=== PATIENT | female | born 1955 | race Caucasian/White ===

== ENCOUNTER 2018-10-29 10:57 | Day surgery (SDC) | payer MEDICAID ==
[2018-10-29] MEDS ORDERED: PROPOFOL INJ 200 MG/20 ML VIAL IV ONE (12:22)
[2018-10-29] MEDS ORDERED: OXYCODONE-ACETAMINOPHEN 5-325 MG TABLET PO PRN ×2 (12:48)
[2018-10-29] MEDS ORDERED: DIPHENHYDRAMINE HCL 50 MG/ML VIAL IV PRN (12:48)
[2018-10-29] MEDS ORDERED: PROMETHAZINE HCL INJ 25 MG/1 ML VIAL IV PRN ×2 (12:48)
[2018-10-29] MEDS ORDERED: MORPHINE SULFATE 10 MG/ML INJ IV PRN (12:48)
[2018-10-29] MEDS ORDERED: FENTANYL CITRATE INJ/PF 100 MCG/2 ML AMPUL IV PRN ×3 (12:48)
[2018-10-29] MEDS ORDERED: MEPERIDINE HCL/PF INJ 25 MG/1 ML DISP.SYRIN IV PRN (12:48)
--- NOTE | 2018-10-29 13:51 | Operative Report ---
Operative Report DATE OF SURGERY: 10/29/18 Operative Report: The risks, benefits and alternatives of the procedure including the risk of bleeding, perforation requiring surgery are explained to the patient in detail and informed consent is obtained. The patient is brought back to the operating room and placed in a left, lateral decubital position. Timeout was called. Propofol medication is administered. A rectal examination is done which did not reveal any masses, tears or fissures. An Olympus videoscope was introduced into the patient's rectum. The scope was then carefully advanced all the way to the cecum. The cecum was identified by the usual anatomical landmarks including the ileocecal valve as well as the appendiceal office. Photodocumentation is obtained. The scope was then sequentially pulled back via the rest segments of the colon including the ascending colon, hepatic flexure, transverse colon, splenic flexure, descending colon and finally into the rectosigmoid portions of the colon. Retroflexion maneuver was performed. PREOPERATIVE DIAGNOSIS: Change in bowel habits POSTOPERATIVE DIAGNOSIS: Sigmoid polyp that was ablated in situ. Rectal polyp removed via snare polypectomy and retrieved. There is severe diverticulosis throughout the colon but no evidence of diverticulitis. Internal hemorrhoids OPERATION: Colonoscopy with snare polypectomy. Colonoscopy with biopsy SURGEON: SHWETHA WILDER ANESTHESIA: LMAC TISSUE REMOVED OR ALTERED: As noted above. COMPLICATIONS: None. ESTIMATED BLOOD LOSS: None. INTRAOPERATIVE FINDINGS: As noted above. PROCEDURE: Patient tolerated the procedure well. No immediate postprocedure complications are noted. Patient discharged in good condition. Discharge date 10/29/2018. Discharge diet: Regular. Discharge activity: Regular. 2-3-week follow-up to discuss findings. Patient is instructed call the office or proceed to the emergency room should there be any further problems or questions. 3-5-year surveillance colonoscopy.
[2018-10-29 14:45] VITALS: BP 142/78
== END 2018-10-29 14:35 | disposition home or self-care (01) ==
LOC: OROUT 10:57
PROVIDERS: ATTEND Internal Medicine Gastroenterology
DX: D12.7 Benign neoplasm of rectosigmoid junction (principal); K64.8 Other hemorrhoids; K57.30 Diverticulosis of large intestine without perforation or abscess without bleeding; K92.1 Melena; J44.9 Chronic obstructive pulmonary disease, unspecified; I25.2 Old myocardial infarction; F17.210 Nicotine dependence, cigarettes, uncomplicated; I11.0 Hypertensive heart disease with heart failure; I50.9 Heart failure, unspecified; Z79.51 Long term (current) use of inhaled steroids
CPT/HCPCS: 45385; 88305 ×2; J2704; 811

== ENCOUNTER → 2018-12-06 | Outpatient (CLI) | payer MEDICAID ==
--- NOTE | 2018-12-06 12:11 | RADIOLOGY REPORT (SQ) ---
EXAM DESCRIPTION: L SPINE WHOLE COMPLETED DATE/TIME: 12/06/2018 11:47 am REASON FOR STUDY: ACUTE BILATERAL LOW BACK PAIN WITHOUT SCIATICA M54.5 LOW BACK PAIN COMPARISON: None. NUMBER OF VIEWS: Five views including obliques. TECHNIQUE: AP, lateral, oblique, and sacral radiographic images acquired of the lumbar spine. LIMITATIONS: None. FINDINGS: MINERALIZATION: Normal. SEGMENTATION: Normal. No transitional anatomy. ALIGNMENT: Normal. VERTEBRAE: Maintained height. No fracture or worrisome bone lesion. DISCS: Disc space loss of height at L1-2, L4-5 and L5-S1. POSTERIOR ELEMENTS: Pedicles and facets are intact. No pars defect or posterior arch defects. Bulky bilateral facet arthropathy at L4-5 and L5-S1 HARDWARE: None in the spine. PARASPINAL SOFT TISSUES: Normal. PELVIS: Not in the field of view. SI joints intact OTHER: No other significant finding. IMPRESSION: Degenerative disc changes with facet arthropathy lower lumbar spine TECHNICAL DOCUMENTATION: JOB ID: [id number] [employer]- All Rights Reserved Reading location - IP/workstation name: [email or web address]
== END ==
LOC: RAD 10:56
PROVIDERS: ATTEND Physician Assistant
DX: M54.5 Low back pain (principal)
CPT/HCPCS: 72110

== ENCOUNTER → 2019-07-30 | Outpatient (CLI) | payer MEDICAID ==
--- NOTE | 2019-07-30 14:24 | RADIOLOGY REPORT (SQ) ---
EXAM DESCRIPTION: CT ABD/PELVIS WITH IV ONLY COMPLETED DATE/TIME: 07/30/2019 1:57 pm REASON FOR STUDY: VENTRAL HERNIA W/O OBSTRUCTION OR GANGRENE (K43.9) K43.9 VENTRAL HERNIA WITHOUT O BSTRUCTION OR GANGRENE COMPARISON: Right gluteal region ultrasound TECHNIQUE: CT scan of the abdomen and pelvis performed using helical scanning technique with dynamic intravenous contrast injection. No oral contrast. Images reviewed with lung, soft tissue, and bone windows. Reconstructed coronal and sagittal MPR images reviewed. Delayed images for evaluation of the urinary system also acquired. All images stored on PACS. All CT scanners at this facility use dose modulation, iterative reconstruction, and/or weight based d osing when appropriate to reduce radiation dose to as low as reasonably achievable (ALARA). [facility]: Dose Right [facility]: CareDose [facility]: Dose Right [facility]: Teradose 4D [facility]: Worldscape CONTRAST TYPE AND DOSE: contrast/concentration: Isovue 350.00 mg/ml; Total Contrast Delivered: 100.0 ml; Total Saline Delivered: 72.0 ml RENAL FUNCTION: Creatinine 0.8 RADIATION DOSE: CT Rad equipment meets quality standard of care and radiation dose reduction techniq ues were employed. CTDIvol: 26.6 - 31.5 mGy. DLP: 2920 mGy-cm.. LIMITATIONS: None. FINDINGS: LOWER CHEST: No significant findings. No nodules or infiltrates. LIVER: Normal size. No masses. No dilated ducts. SPLEEN: Normal size. No focal lesions. PANCREAS: No masses. No significant calcifications. No adjacent inflammation or peripancreatic fluid collections. Pancreatic duct not dilated. GALLBLADDER: No identified stones by CT criteria. No inflammatory changes to suggest cholecystitis. ADRENAL GLANDS: No significant masses or asymmetry. RIGHT KIDNEY AND URETER: No solid masses. Multiple less than 2 cm right renal cortical cysts. No si gnificant calcifications. No hydronephrosis or hydroureter. LEFT KIDNEY AND URETER: No solid masses. Multiple less than 2 cm left renal cortical cysts. No sign ificant calcifications. No hydronephrosis or hydroureter. AORTA AND VESSELS: No aneurysm. No dissection. Renal arteries, SMA, celiac without stenosis. RETROPERITONEUM: No retroperitoneal adenopathy, hemorrhage or masses. BOWEL AND PERITONEAL CAVITY: Diffuse colonic diverticulosis without CT signs of acute diverticulitis. No CT evidence of free intraperitoneal air or fluid or CT signs of bowel obstruction or urinary out flow obstruction APPENDIX: Normal. PELVIS: No mass. No free fluid. Normal bladder. Normal size female pelvic organs ABDOMINAL WALL: No masses. No hernias. BONES: Mild degenerative disc changes lower lumbar spine. Osteoarthritis bilateral hips. OTHER: Over the right gluteal/ upper thigh region, several subcentimeter and cm cystic areas are pres ent with bandlike scarring likely fat necrosis. This is best shown on axial images 88-91. IMPRESSION: Colonic diverticulosis without CT signs of acute diverticulitis Fat necrosis right gluteal region TECHNICAL DOCUMENTATION: JOB ID: [id number] Quality ID # [id number]: Final reports with documentation of one or more dose reduction techniques (e.g., Au tomated exposure control, adjustment of the mA and/or kV according to patient size, use of iterative reconstruction technique) 2010 [employer]- All Rights Reserved Reading location - IP/workstation name: [email or web address]
--- NOTE | 2019-07-30 15:42 | RADIOLOGY REPORT (SQ) ---
EXAM DESCRIPTION: U/S EXTREMITY NONVASCULAR LTD COMPLETED DATE/TIME: 07/30/2019 2:31 pm REASON FOR STUDY: SWELLING, MASS AND LUMP, RIGHT LOWER LIMB (R22.41) K43.9 VENTRAL HERNIA WITHOUT O BSTRUCTION OR GANGRENE COMPARISON: None. TECHNIQUE: Dynamic and static grayscale images acquired of the localized site of clinical concern an d recorded on PACS. Additional selected color Doppler and spectral images recorded. SITE OF CONCERN: Posterior right thigh LIMITATIONS: None. FINDINGS: Sonographic imaging shows 4 areas of decreased attenuation. The largest measures 20 x 21 x 15 mm. The smallest measures 13 x 10 x 11 mm. IMPRESSION: Possible areas of fat necrosis in the posterior right thigh. TECHNICAL DOCUMENTATION: JOB ID: [id number] [employer]- All Rights Reserved Reading location - IP/workstation name: [email or web address]
== END ==
LOC: RAD 13:25
PROVIDERS: ATTEND Physician Assistant
DX: K43.9 Ventral hernia without obstruction or gangrene (principal); R22.41 Localized swelling, mass and lump, right lower limb; K57.30 Diverticulosis of large intestine without perforation or abscess without bleeding
CPT/HCPCS: 74177; 76882; 82565

== ENCOUNTER 2020-07-26 17:45 | Inpatient (IN) | payer MEDICAID ==
[~2020-07-26 17:45] MED LIST: ETOMIDATE INJ/PF 20 MG/10 ML SDV IV ONE; SUCCINYLCHOLINE CHLORIDE INJ 200 MG/10 ML VIAL ONE
[2020-07-26] MEDS: RINGERS SOLUTION,LACTATED 1,000 ML IV PRN ×3 (18:00→23:30)
[2020-07-26] MEDS ORDERED: NALOXONE HCL INJ/PF 0.4 MG/1 ML SDV IV ONE (18:05)
[2020-07-26] MEDS ORDERED: VANCOMYCIN HCL INJ 1000 MG VIAL IV ONE (18:09)
[2020-07-26] MEDS ORDERED: IMIPENEM/CILASTATIN SODIUM INJ 500 MG VIAL IV ONE (18:09)
--- NOTE | 2020-07-26 18:21 | ER Document Report ---
ED General - General Chief Complaint: Altered Mental Status Stated Complaint: ALTERED MENTAL STATUS Primary Care Provider: ENRIQUE JUAREZ FNP-C [Primary Care Provider] - Follow up as needed TRAVEL OUTSIDE OF THE [place] IN LAST 30 DAYS: No - HPI Notes: Chief complaint: Altered mental status History of present illness: 65-year-old female with history of COPD and "heart problems" reported by family members to have had difficulty breathing for several days. She apparently lives alone. 1 of her relatives had been trying for over 10 hours to reach her on the telephone with a unsuccessfully and when he went to the house they found her in the bathroom on the floor semi- responsive. They called EMS. According to EMS crew the patient was lying on t he floor and was initially alert and oriented but had blue discoloration of lower extremities. He obtained a O2 saturation in the upper 60s. Placed her on a nonrebreather and documented a normal fingerstick blood sugar. When they attempted to get her up off the floor she became unresponsive blood pressure was unobtainable. They loaded her onto a nature of 100% nonrebreather they had a 90% O2 sat. Patient was groaning and moving all 4 extremities symmetrically in response to painful stimuli. She was not talking during transport. No additional medical history is obtainable at this time. - Related Data Allergies/Adverse Reactions: No Known Allergies Allergy (Verified 10/29/18 11:09) Past Medical History - General Information source: Emergency Med Personnel Cannot obtain history due to: Unstable vital signs, Altered mental status - Social History Smoking Status: Current Every Day Smoker Family History: Reviewed & Not Pertinent - Past Medical History Cardiac Medical History: Reports: Hx Heart Attack - 2018, Hx Hypertension - MEDS PRN Denies: Hx Coronary Artery Disease Pulmonary Medical History: Reports: Hx Bronchitis, Hx COPD Denies: Hx Asthma, Hx Pneumonia Neurological Medical History: Denies: Hx Cerebrovascular Accident, Hx Seizures Musculoskeletal Medical History: Reports Hx Arthritis - SPINE - Immunizations Hx Diphtheria, Pertussis, Tetanus Vaccination: No Review of Systems - Review of Systems -: Yes ROS unobtainable due to patient's medical condition Physical Exam - Vital signs Vitals: Resp Pulse Ox 13 83 L 07/26/20 17:50 07/26/20 17:50 - Notes Notes: GENERAL: Morbidly obese female of approximately reported age. SKIN: Cool, pale and moist. Extensive intertrigo in the groin area and beneath both breasts. Acral cyanosis lower extremities. HEAD: Normocephalic atraumatic. EYES: Prominent bilateral arcus senilis. Pupils are small equal and sluggishly reactive to light. EOMI. Conjunctivae and sclerae clear. EARS: CANALS AND TMS CLEAR. NOSE: CLEAR. MOUTH: Moist mucosa. Poor dentition. No stridor or edema. No drooling. Gag reflex intact. NECK: Supple. No masses or thyromegaly. No adenopathy. No JVD. BACK: Symmetrical. CHEST: Respirations mildly labored. Poor air movement with scattered rhonchi bilaterally. HEART: Regular rhythm. No murmur gallop or rub. ABDOMEN: Morbidly obese with large ventral hernia present soft nontender without masses, organomegaly or rebound. Bowel sounds normally active. No bruits. GENITALIA: Normal female with extensive intertrigo. EXTREMITIES: Lymphedema of lower extremities. No calf tenderness. Cap refill less than 1.5 seconds. Dorsalis pedis and posterior tibial pulses 3+ and symmetrical. NEUROLOGICAL: GCS 12. Opens eyes to verbal stimuli. Repeats her name only. Follows commands to squeeze fingers. Moves extremities symmetrically in res ponse to painful stimuli. Normal tone. Course - Vital Signs Vital signs: Temp Pulse Resp BP Pulse Ox 97.2 F 17 95/19 L 100 07/26/20 19:08 07/26/20 19:08 07/26/20 19:08 07/26/20 19:07 - Laboratory Result Diagrams: 07/26/20 18:10 07/26/20 18:10 Laboratory results interpreted by me: 07/26/20 07/26/20 07/26/20 18:10 18:10 18:10 WBC 21.8 H RBC 5.92 H Hgb 17.0 H Hct 52.6 H RDW 16.0 H Seg Neuts % (Manual) 95 H Band Neutrophils % 1 L Lymphocytes % (Manual) 1 L Abs Neuts (Manual) 20.9 H Abs Lymphs (Manual) 0.2 L PT 15.5 H Carbonic Acid ABG pH ABG pCO2 ABG HCO3 ABG Total CO2 ABG O2 Saturation VBG pH VBG pCO2 Chloride 95 L Carbon Dioxide 31 H BUN 92 H Creatinine 1.73 H Est GFR ( Amer) 36 L Est GFR (MDRD) Non-Af 30 L Lactic Acid Direct Bilirubin 0.7 H AST 446 H ALT 142 H Creatine Kinase NT-Pro-B Natriuret Pep Urine Protein Urine Blood Urine Urobilinogen Leukocyte Esterase Rfl 07/26/20 07/26/20 07/26/20 18:10 18:10 18:10 WBC RBC Hgb Hct RDW Seg Neuts % (Manual) Band Neutrophils % Lymphocytes % (Manual) Abs Neuts (Manual) Abs Lymphs (Manual) PT Carbonic Acid ABG pH ABG pCO2 ABG HCO3 ABG Total CO2 ABG O2 Saturation VBG pH 7.12 L* VBG pCO2 93.7 H* Chloride Carbon Dioxide BUN Creatinine Est GFR ( Amer) Est GFR (MDRD) Non-Af Lactic Acid 2.6 H Direct Bilirubin AST ALT Creatine Kinase 90935 H NT-Pro-B Natriuret Pep Urine Protein Urine Blood Urine Urobilinogen Leukocyte Esterase Rfl 07/26/20 07/26/20 07/26/20 18:10 18:10 20:14 WBC RBC Hgb Hct RDW Seg Neuts % (Manual) Band Neutrophils % Lymphocytes % (Manual) Abs Neuts (Manual) Abs Lymphs (Manual) PT Carbonic Acid 2.79 H ABG pH 7.14 L* ABG pCO2 92.6 H* ABG HCO3 31.0 H ABG Total CO2 33.9 H ABG O2 Saturation 91.4 L VBG pH VBG pCO2 Chloride Carbon Dioxide BUN Creatinine Est GFR ( Amer) Est GFR (MDRD) Non-Af Lactic Acid Direct Bilirubin AST ALT Creatine Kinase NT-Pro-B Natriuret Pep 7910 H Urine Protein 100 H Urine Blood LARGE H Urine Urobilinogen 4.0 H Leukocyte Esterase Rfl MODERATE H - Diagnostic Test Radiology reviewed: Reports reviewed - Per radiologist: Multifocal pneumonia versus CHF. - EKG Interpretation by Me Additional EKG results interpreted by me: 07/26/20 19:39 Twelve-lead EKG reviewed by me contemporaneously: 1821 Indication for study: Altered mental status Rhythm: Normal sinus Rate: 74 Intervals: Normal QRS axis: -[address]/T wave changes: None Comparison with prior tracing: None available Interpretation: LVH and left anterior fascicular block Procedures - Intubation Orotracheal Airway evaluation: Normal anatomy, Copious secretions Mallampati Classification: Class 2 Medications: Etomidate, Succinylcholine Intubation method: Orotracheal Blade size: 4 Equipment used: Glidescope ETT size: 8.0 ETT secured at: Teeth ETT secured at (cm): 22 End tidal CO2 confirmed: Yes Intubation Complications: No complications Critical Care Note - Critical Care Note Total time excluding time spent on procedures (mins): 120 - AMS, pneumonia, sepsis, rhabdomyolysis, respiratory failure wiring intubation Discharge - Discharge Clinical Impression: Suspected COVID-19 virus infection, COPD, Acute non-STEMI Acute and chronic respiratory failure Qualifiers: Respiratory failure complication: hypoxia and hypercapnia Qualified Code(s): J96.21 - Acute and chronic respiratory failure with hypoxia Pneumonia Qualifiers: Pneumonia type: due to unspecified organism Laterality: bilateral Lung location: unspecified part of lung Qualified Code(s): J18.9 - Pneumonia, unspecified organism Rhabdomyolysis Qualifiers: Rhabdomyolysis type: non-traumatic Qualified Code(s): M62.82 - Rhabdomyolysis Condition: Critical Disposition: ADMITTED INPATIENT Admitting Provider: Eligio (Industrial Engineering Professor) Unit Admitted: ICU Referrals: ENRIQUE JUAREZ FNP-C [Primary Care Provider] - Follow up as needed
[2020-07-26 18:31] LABS: HEMATOCRIT 52.6 % (36.0-47.0); MEAN CORPUSCULAR HEMOGLOBIN 28.7 pg (27.0-33.4); MEAN CORPUSCULAR HGB CONC 32.3 g/dL (32.0-36.0); MEAN CORPUSCULAR VOLUME 89 fl (80-97); PLATELET COUNT 239 10^3/uL (150-450); RED BLOOD COUNT 5.92 10^6/uL (3.72-5.28); WHITE BLOOD COUNT 21.8 10^3/uL (4.0-10.5)
[2020-07-26 18:34] LABS: INTERNATIONAL RATION (INR) 1.21; PROTHROMBIN TIME 15.5 SEC (11.4-15.4)
[2020-07-26 18:41] LABS: AMORPHOUS SEDIMENT,URINE TRACE /HPF; APPEARANCE,URINE CLOUDY; BILIRUBIN,URINE NEGATIVE (NEGATIVE); COLOR,URINE AMBER; GLUCOSE, URINE NEGATIVE (NEGATIVE); KETONES,URINE NEGATIVE (NEGATIVE); PROTEIN,URINE 100 mg/dL (NEGATIVE)
[2020-07-26 18:42] LABS: VENOUS BLOOD HCO3 30.1 mmol/L (20-32)
[2020-07-26 18:44] LABS: ABSOLUTE LYMPHOCYTES# (MANUAL) 0.2 10^3/uL (0.5-4.7); ABSOLUTE MONOCYTES # (MANUAL) 0.7 10^3/uL (0.1-1.4); ANISOCYTOSIS 1+; BAND NEUTROPHILS % (MANUAL) 1 % (3-5); BASOPHILS % (MANUAL) 0 % (0-2); EOSINOPHILS % (MANUAL) 0 % (0-6); LYMPHOCYTES % (MANUAL) 1 % (13-45); MONOCYTES % (MANUAL) 3 % (3-13); SEGMENTED NEUTROPHILS % (MAN) 95 % (42-78); TOTAL CELLS COUNTED 100
[2020-07-26 18:45] LABS: POIKILOCYTOSIS 1+; POLYCHROMASIA 1+; STOMATOCYTES 1+; VENOUS BLOOD PCO2 93.7 mmHg (35-63); VENOUS BLOOD PH 7.12 (7.30-7.42)
[2020-07-26 18:46] LABS: PLATELET COMMENT ADEQUATE
[2020-07-26 18:48] LABS: ALKALINE PHOSPHATASE 74 U/L (38-126); ANION GAP 12 (5-19); ASPARTATE AMINO TRANSFERASE 446 U/L (14-36); BILIRUBIN,DIRECT 0.7 mg/dL (0.0-0.4); BILIRUBIN,TOTAL 1.3 mg/dL (0.2-1.3); BLOOD UREA NITROGEN 92 mg/dL (7-20); CARBON DIOXIDE 31 mmol/L (22-30); CHLORIDE 95 mmol/L (98-107); GLUCOSE 95 mg/dL (75-110); POTASSIUM 4.4 mmol/L (3.6-5.0); TOTAL PROTEIN 7.1 g/dL (6.3-8.2)
--- NOTE | 2020-07-26 19:14 | RADIOLOGY REPORT (SQ) ---
EXAM DESCRIPTION: CHEST SINGLE VIEW IMAGES COMPLETED DATE/TIME: 07/26/2020 7:01 pm REASON FOR STUDY: hypoxia COMPARISON: None. EXAM PARAMETERS: NUMBER OF VIEWS: One view. TECHNIQUE: Single frontal radiographic view of the chest acquired. RADIATION DOSE: NA LIMITATIONS: None. FINDINGS: LUNGS AND PLEURA: Diffusely increased airspace opacities without focal consolidation. No pleural effusion. No pneumothorax. MEDIASTINUM AND HILAR STRUCTURES: No masses. Contour normal. HEART AND VASCULAR STRUCTURES: Cardiomegaly without central vascular congestion. BONES: No acute findings. HARDWARE: None in the chest. OTHER: No other significant finding. IMPRESSION: Findings may represent a developing multifocal pneumonia. Early CHF exacerbation is not excluded. TECHNICAL DOCUMENTATION: JOB ID: [id number] 2010 [employer]- All Rights Reserved Reading location - IP/workstation name: [email or web address]
[2020-07-26] MEDS ORDERED: AZITHROMYCIN INJ 500 MG VIAL IV ONE (19:41)
[2020-07-26 20:41] LABS: ARTERIAL BLOOD BASE EXCESS -1.3 mmol/L; ARTERIAL BLOOD H2CO3 2.79 mmol/L (1.05-1.35); ARTERIAL BLOOD O2 SATURATION 91.4 % (94-98); ARTERIAL BLOOD PO2 80.6 mmHg (80-100); ARTERIAL BLOOD TOTAL CO2 33.9 mmol/L (21-25)
[2020-07-26 20:51] LABS: ARTERIAL BLOOD PCO2 92.6 mmHg (35-45); ARTERIAL BLOOD PH 7.14 (7.35-7.45)
[2020-07-26 20:52] LABS: ARTERIAL BLOOD FIO2 60%
[2020-07-26] MEDS ORDERED: ETOMIDATE INJ/PF 20 MG/10 ML SDV IV ONE (21:18)
[2020-07-26] MEDS ORDERED: SUCCINYLCHOLINE CHLORIDE INJ 200 MG/10 ML VIAL IV ONE (21:19)
[2020-07-26] MEDS ORDERED: DEXTROSE 5%-WATER 250 ML with NOREPINEPHRINE BITARTRATE 4 MG IV PRN ×2 (21:23)
[2020-07-26] MEDS ORDERED: ACETAMINOPHEN 325 MG TABLET PO PRN (21:23)
[2020-07-26] MEDS ORDERED: RINGERS SOLUTION,LACTATED 1,000 ML IV PRN (21:23)
[2020-07-26] MEDS ORDERED: ONDANSETRON HCL INJ/PF 4 MG/2 ML SDV IV PRN (21:23)
[2020-07-26] MEDS ORDERED: PHARMACY COMMUNICATION ORDER MC NR (21:30)
[2020-07-26] MEDS ORDERED: ACETAMINOPHEN 325 MG TABLET NG PRN (22:00)
[2020-07-26] MEDS ORDERED: NOREPINEPHRINE BITARTRATE INJ/PF 4 MG/4 ML SDV IV ONE (22:15)
--- NOTE | 2020-07-26 22:21 | RADIOLOGY REPORT (SQ) ---
EXAM DESCRIPTION: X-RAY CHEST- TWO VIEWS CLINICAL HISTORY: Evaluate tube placement COMPARISON: July 26, 2020 at 6:57 PM TECHNIQUE: 2 frontal views of the chest. Study submitted at 9:36 PM FINDINGS: There are overlying EKG leads. Presumed endotracheal tube is noted, terminating approximately 2.1 cm above the zach. Enteric tube is visualized with distal tip terminating in the expected location of the stomach. There is redemonstration of bibasilar airspace opacities. The pulmonary vascularity and the cardiomediastinal silhouette are grossly stable in appearance with redemonstration of mild enlargement of the cardiac silhouette. Osseous structures are unchanged. IMPRESSION: 1. Positioning of support lines and tubes as detailed above. A presumed endotracheal tube is noted. Consider retraction for more optimal placement. 2. Redemonstration of bibasilar airspace opacities. Findings are nonspecific and differential diagnosis includes infectious and inflammatory causes.
[2020-07-26 22:31] LABS: ALBUMIN 3.3 g/dL (3.5-5.0); ALKALINE PHOSPHATASE 58 U/L (38-126); ANION GAP 11 (5-19); ASPARTATE AMINO TRANSFERASE 551 U/L (14-36); BILIRUBIN,DIRECT 0.5 mg/dL (0.0-0.4); BLOOD UREA NITROGEN 91 mg/dL (7-20); CALCIUM 8.3 mg/dL (8.4-10.2); CARBON DIOXIDE 30 mmol/L (22-30); CHLORIDE 96 mmol/L (98-107); GLUCOSE 116 mg/dL (75-110); POTASSIUM 4.6 mmol/L (3.6-5.0)
[2020-07-26] MEDS: IPRATROPIUM/ALBUTEROL 0.5-2.5 MG/3 ML AMPUL NEB SCH (22:31)
[2020-07-26] MEDS: PROPOFOL 1,000 MG/100 ML INFUS..BTL IV PRN (22:46)
[2020-07-26 22:53] LABS: PHOSPHORUS 7.7 mg/dL (2.5-4.5)
[2020-07-26 23:10] LABS: TROPONIN I 0.411 ng/mL
[2020-07-26] MEDS: PANTOPRAZOLE SODIUM 40 MG VIAL IV SCH (23:56)
[2020-07-26 23:57] LABS: ARTERIAL BLOOD BASE EXCESS -0.4 mmol/L; ARTERIAL BLOOD FIO2 50%; ARTERIAL BLOOD H2CO3 2.42 mmol/L (1.05-1.35); ARTERIAL BLOOD HCO3 30.6 mmol/L (20-24); ARTERIAL BLOOD PO2 58.7 mmHg (80-100); ARTERIAL BLOOD TOTAL CO2 33.1 mmol/L (21-25)
[2020-07-26 23:59] LABS: ARTERIAL BLOOD PCO2 80.5 mmHg (35-45)
[2020-07-27 00:14] LABS: HEMATOCRIT 47.5 % (36.0-47.0); HEMOGLOBIN 15.2 g/dL (12.0-15.5); MEAN CORPUSCULAR HEMOGLOBIN 28.8 pg (27.0-33.4); MEAN CORPUSCULAR VOLUME 90 fl (80-97); PLATELET COUNT 198 10^3/uL (150-450); RED BLOOD COUNT 5.29 10^6/uL (3.72-5.28); RED CELL DISTRIBUTION WIDTH 16.3 % (11.5-14.0)
[2020-07-27 00:41] LABS: ABSOLUTE LYMPHOCYTES# (MANUAL) 1.1 10^3/uL (0.5-4.7); BASOPHILS % (MANUAL) 0 % (0-2); EOSINOPHILS % (MANUAL) 0 % (0-6); LYMPHOCYTES % (MANUAL) 5 % (13-45); MONOCYTES % (MANUAL) 9 % (3-13); NUCLEATED RED BLOOD CELLS 1 /100 WBC (0); SEGMENTED NEUTROPHILS % (MAN) 86 % (42-78); TOTAL CELLS COUNTED 100
[2020-07-27 00:42] LABS: ANISOCYTOSIS 1+; PLATELET COMMENT ADEQUATE; TOXIC VACUOLATION PRESENT
[2020-07-27 02:00] LABS: ARTERIAL BLOOD BASE EXCESS -0.3 mmol/L; ARTERIAL BLOOD H2CO3 1.59 mmol/L (1.05-1.35); ARTERIAL BLOOD HCO3 26.7 mmol/L (20-24); ARTERIAL BLOOD O2 SATURATION 97.3 % (94-98); ARTERIAL BLOOD PCO2 52.8 mmHg (35-45); ARTERIAL BLOOD PH 7.32 (7.35-7.45); ARTERIAL BLOOD PO2 103.6 mmHg (80-100); ARTERIAL BLOOD TOTAL CO2 28.3 mmol/L (21-25)
[2020-07-27 02:02] LABS: ARTERIAL BLOOD FIO2 80
[2020-07-27] MEDS: IPRATROPIUM/ALBUTEROL 0.5-2.5 MG/3 ML AMPUL NEB SCH ×4 (02:20→19:33)
--- NOTE | 2020-07-27 03:32 | CRITICAL CARE ADMISSION REPORT ---
HPI Date:: 07/26/20 Time:: 23:00 Reason for ICU Reason:: Acute Hypercarbic respiratory failure Admission Date/Time & PCP: Admission Date/Time: 07/26/20 21:23 Primary Care Provider: CAPRICE GOLDSTEIN HPI: istory of present illness: 65-year-old female with history of COPD and "heart problems" reported by family members to have had difficulty breathing for several days. She was found semi responsive on her bath room by one of her relative after multiple failed attempt to reach her through phone. Unknown how long she has been in this state.EMS was activated. According to EMS crew the patient was lying on the floor and was initially alert and oriented but noted blue discoloration of lower extremities. She was hypoxic with o2 saturation < 65% Placed her on a non-rebreather and o2 saturation went up to 90%Patient was groaning and moving all 4 extremities symmetrically in response to painful stimuli. She was placed on BIPAP upon arrival to ED and urgently intubated. - Diagnosis/Plan (1) Sepsis Qualifiers: Sepsis type: sepsis due to unspecified organism Sepsis acute organ dysfunction status: unspecified Qualified Code(s): A41.9 - Sepsis, unspecified organism Is this a current diagnosis for this admission?: Yes Plan: sepsis protocol initiated. BC x 2 , sputum culture obtained . Emperic IV ABT. IVF resuscitation 3 L given. (2) CHF (congestive heart failure), NYHA class II Qualifiers: Congestive heart failure type: unspecified Qualified Code(s): I50.9 - Heart failure, unspecified Is this a current diagnosis for this admission?: Yes (3) Obesity hypoventilation syndrome Is this a current diagnosis for this admission?: Yes (4) COPD (chronic obstructive pulmonary disease) Qualifiers: COPD type: COPD with acute lower respiratory infection Qualified Code(s): J44.0 - Chronic obstructive pulmonary disease with (acute) lower respiratory infection Is this a current diagnosis for this admission?: Yes (5) Acute and chronic respiratory failure Qualifiers: Respiratory failure complication: hypoxia and hypercapnia Qualified Code(s): J96.21 - Acute and chronic respiratory failure with hypoxia; J96.22 - Acute and chronic respiratory failure with hypercapnia Is this a current diagnosis for this admission?: Yes Plan: Patient intubated and sedated. Emperic ABT started. Sputum culture sent. COVID test pending (6) Pneumonia Qualifiers: Pneumonia type: due to unspecified organism Laterality: left Lung location: unspecified part of lung Qualified Code(s): J18.9 - Pneumonia, unspecified organism Is this a current diagnosis for this admission?: Yes Plan: Sputum culture. Emperic IV ABT initiated. (7) Rhabdomyolysis Qualifiers: Rhabdomyolysis type: non-traumatic Qualified Code(s): M62.82 - Rhabdomyolysis Is this a current diagnosis for this admission?: Yes Plan: Fluid resuscitation. Monitor CK, Monitor renal function. (8) Suspected COVID-19 virus infection Is this a current diagnosis for this admission?: Yes Plan: COVID test pending. Isolation Past Medical History Cardiac Medical History: Reports: Myocardial Infarction - 2018, Hypertension - MEDS PRN Denies: Coronary Artery Disease Pulmonary Medical History: Reports: Bronchitis, Chronic Obstructive Pulmonary Disease (COPD) Denies: Asthma, Pneumonia Neurological Medical History: Denies: Seizures Musculoskeltal Medical History: Reports: Arthritis - SPINE Hematology: Denies: Anemia Social/Family History - Social History Lives with: Alone Smoking Status: Current Every Day Smoker - Medication/Allergies Home Medications: Hydrochlorothiazide [Hydrodiuril 25 mg Tablet] 25 mg PO PRN PRN 10/28/18 Multivitamin [Multiple Vitamins] 1 each PO DAILY 10/28/18 Multivitamin with Minerals [Hair, Skin and Nails] 1 each PO DAILY 10/28/18 Allergies/Adverse Reactions: No Known Allergies Allergy (Verified 10/29/18 11:09) Review of Systems ROS unobtainable: Due to endotracheal tube Physical Exam Vital Signs: Temp Pulse Resp BP Pulse Ox 98.6 F 64 20 113/78 97 07/27/20 00:03 07/27/20 00:03 07/27/20 00:03 07/27/20 00:03 07/27/20 00:03 Intake & Output 07/25/20 07/26/20 07/27/20 06:59 06:59 06:59 Intake Total 2262 Output Total 45 Balance 2217 Weight 149.8 kg Weight/Height Weight 149.8 kg Height 5 ft 7 in Laboratory/Radiographs Laboratory Results: 07/26/20 21:31 07/27/20 00:15 07/26/20 07/26/20 07/26/20 18:10 18:10 18:10 WBC 21.8 H RBC 5.92 H Hgb 17.0 H Hct 52.6 H MCV 89 MCH 28.7 MCHC 32.3 RDW 16.0 H Plt Count 239 Seg Neutrophils % Not Reportable Carbonic Acid HCO3/H2CO3 Ratio ABG pH ABG pCO2 ABG pO2 ABG HCO3 ABG O2 Saturation ABG Base Excess VBG pH 7.12 L* VBG pCO2 93.7 H* VBG HCO3 30.1 VBG Base Excess -3.0 FiO2 Sodium 138.4 Potassium 4.4 Chloride 95 L Carbon Dioxide 31 H Anion Gap 12 BUN 92 H Creatinine 1.73 H Est GFR ( Amer) 36 L Est GFR (Non-Af Amer) Glucose 95 Lactic Acid Calcium 9.0 Phosphorus Magnesium Ferritin Total Bilirubin 1.3 AST 446 H Alkaline Phosphatase 74 Total Protein 7.1 Albumin 4.0 Amylase Lipase Urine Color Urine Appearance Urine pH Ur Specific Callahan Urine Protein Urine Glucose (UA) Urine Ketones Urine Blood Urine RBC (Auto) 07/26/20 07/26/20 07/26/20 18:10 18:10 18:10 WBC RBC Hgb Hct MCV MCH MCHC RDW Plt Count Seg Neutrophils % Carbonic Acid HCO3/H2CO3 Ratio ABG pH ABG pCO2 ABG pO2 ABG HCO3 ABG O2 Saturation ABG Base Excess VBG pH VBG pCO2 VBG HCO3 VBG Base Excess FiO2 Sodium Potassium Chloride Carbon Dioxide Anion Gap BUN Creatinine Est GFR ( Amer) Est GFR (Non-Af Amer) Glucose Lactic Acid 2.6 H Calcium Phosphorus Magnesium Ferritin 35.60 Total Bilirubin AST Alkaline Phosphatase Total Protein Albumin Amylase Lipase Urine Color JOVANNY Urine Appearance CLOUDY Urine pH 5.0 Ur Specific Callahan 1.020 Urine Protein 100 H Urine Glucose (UA) NEGATIVE Urine Ketones NEGATIVE Urine Blood LARGE H Urine RBC (Auto) 6 07/26/20 07/26/20 07/26/20 20:14 21:31 21:31 WBC RBC Hgb Hct MCV MCH MCHC RDW Plt Count Seg Neutrophils % Carbonic Acid 2.79 H HCO3/H2CO3 Ratio 11:1 ABG pH 7.14 L* ABG pCO2 92.6 H* ABG pO2 80.6 ABG HCO3 31.0 H ABG O2 Saturation 91.4 L ABG Base Excess -1.3 VBG pH VBG pCO2 VBG HCO3 VBG Base Excess FiO2 60% Sodium 136.9 L Potassium 4.6 Chloride 96 L Carbon Dioxide 30 Anion Gap 11 BUN 91 H Creatinine 1.52 H Est GFR ( Amer) 42 L Est GFR (Non-Af Amer) Glucose 116 H Lactic Acid Calcium 8.3 L Phosphorus 7.7 H Magnesium 2.5 H Ferritin Total Bilirubin 1.0 AST 551 H Alkaline Phosphatase 58 Total Protein 6.0 L Albumin 3.3 L Amylase 46 Lipase 96.5 Urine Color Urine Appearance Urine pH Ur Specific Callahan Urine Protein Urine Glucose (UA) Urine Ketones Urine Blood Urine RBC (Auto) 07/26/20 07/26/20 07/26/20 21:31 21:45 21:48 WBC 22.0 H RBC 5.29 H Hgb 15.2 Hct 47.5 H MCV 90 MCH 28.8 MCHC 32.0 RDW 16.3 H Plt Count 198 Seg Neutrophils % Not Reportable Carbonic Acid 2.42 H HCO3/H2CO3 Ratio 12:1 ABG pH 7.20 L* ABG pCO2 80.5 H* ABG pO2 58.7 L ABG HCO3 30.6 H ABG O2 Saturation 83.0 L ABG Base Excess -0.4 VBG pH VBG pCO2 VBG HCO3 VBG Base Excess FiO2 50% Sodium Potassium Chloride Carbon Dioxide Anion Gap BUN Creatinine Est GFR ( Amer) Est GFR (Non-Af Amer) Glucose Lactic Acid 1.4 Calcium Phosphorus Magnesium Ferritin Total Bilirubin AST Alkaline Phosphatase Total Protein Albumin Amylase Lipase Urine Color Urine Appearance Urine pH Ur Specific Callahan Urine Protein Urine Glucose (UA) Urine Ketones Urine Blood Urine RBC (Auto) 07/27/20 07/27/20 00:15 00:42 WBC RBC Hgb Hct MCV MCH MCHC RDW Plt Count Seg Neutrophils % Carbonic Acid HCO3/H2CO3 Ratio ABG pH ABG pCO2 ABG pO2 ABG HCO3 ABG O2 Saturation ABG Base Excess VBG pH VBG pCO2 VBG HCO3 VBG Base Excess FiO2 Sodium Cancelled Potassium Cancelled Chloride Cancelled Carbon Dioxide Cancelled Anion Gap Cancelled BUN Cancelled Creatinine Cancelled Est GFR ( Amer) Cancelled Est GFR (Non-Af Amer) Cancelled Glucose Cancelled Lactic Acid 2.3 H Calcium Cancelled Phosphorus Magnesium Ferritin Total Bilirubin Cancelled AST Cancelled Alkaline Phosphatase Cancelled Total Protein Cancelled Albumin Cancelled Amylase Lipase Urine Color Urine Appearance Urine pH Ur Specific Callahan Urine Protein Urine Glucose (UA) Urine Ketones Urine Blood Urine RBC (Auto) 07/26/20 07/26/20 07/26/20 18:10 18:10 18:10 Creatine Kinase 80983 H CK-MB (CK-2) Troponin I 0.478 NT-Pro-B Natriuret Pep 7910 H 07/26/20 21:31 Creatine Kinase CK-MB (CK-2) 296.00 H Troponin I 0.411 NT-Pro-B Natriuret Pep 6640 H Impressions: Chest X-Ray 07/26/20 21:17 IMPRESSION: 1. Positioning of support lines and tubes as detailed above. A presumed endotracheal tube is noted. Consider retraction for more optimal placement. 2. Redemonstration of bibasilar airspace opacities. Findings are nonspecific and differential diagnosis includes infectious and inflammatory causes. All labs, radiographs, diagnostic studies and EKGs were personally reviewed: Yes In addition, reports of radiographic and diagnostic studies were read: Yes Critical Time Critical Time (minutes): 60 -: The care of a critically ill patient is dynamic. This note represents a static moment in the admission process. Orders and treatments may be given simultaneously and urgently, and time is not sales representative cash registers of the treatment process. This patient requires Critical Care secondary to life threatening organ or limb dysfunction. Without Critical Care services, the patient is at risk for increased mortality and morbidity.
[2020-07-27] MEDS: RINGERS SOLUTION,LACTATED 1,000 ML IV PRN ×2 (03:35→14:28)
[2020-07-27 03:50] LABS: HEMATOCRIT 49.6 % (36.0-47.0); HEMOGLOBIN 16.1 g/dL (12.0-15.5); MEAN CORPUSCULAR HEMOGLOBIN 28.6 pg (27.0-33.4); MEAN CORPUSCULAR HGB CONC 32.4 g/dL (32.0-36.0); MEAN CORPUSCULAR VOLUME 88 fl (80-97); PLATELET COUNT 175 10^3/uL (150-450); RED BLOOD COUNT 5.62 10^6/uL (3.72-5.28); RED CELL DISTRIBUTION WIDTH 16.2 % (11.5-14.0); WHITE BLOOD COUNT 23.4 10^3/uL (4.0-10.5)
[2020-07-27 04:26] LABS: ABSOLUTE LYMPHOCYTES# (MANUAL) 1.4 10^3/uL (0.5-4.7); ABSOLUTE MONOCYTES # (MANUAL) 1.6 10^3/uL (0.1-1.4); BASOPHILS % (MANUAL) 0 % (0-2); EOSINOPHILS % (MANUAL) 0 % (0-6); LYMPHOCYTES % (MANUAL) 6 % (13-45); MONOCYTES % (MANUAL) 7 % (3-13); SEGMENTED NEUTROPHILS % (MAN) 87 % (42-78); TOTAL CELLS COUNTED 100
[2020-07-27 04:27] LABS: ANISOCYTOSIS 1+; PLATELET COMMENT ADEQUATE; TOXIC VACUOLATION PRESENT
[2020-07-27] MEDS ORDERED: CEFAZOLIN INJ 1 GM VIAL ONE (05:08)
[2020-07-27 05:42] LABS: ALBUMIN 3.4 g/dL (3.5-5.0); ALKALINE PHOSPHATASE 61 U/L (38-126); ANION GAP 11 (5-19); ASPARTATE AMINO TRANSFERASE 740 U/L (14-36); BILIRUBIN,DIRECT 0.6 mg/dL (0.0-0.4); BILIRUBIN,TOTAL 1.3 mg/dL (0.2-1.3); BLOOD UREA NITROGEN 96 mg/dL (7-20); CALCIUM 8.6 mg/dL (8.4-10.2); CARBON DIOXIDE 31 mmol/L (22-30); CHLORIDE 94 mmol/L (98-107); GLUCOSE 114 mg/dL (75-110); POTASSIUM 4.8 mmol/L (3.6-5.0); TOTAL PROTEIN 6.5 g/dL (6.3-8.2)
[2020-07-27] MEDS ORDERED: CEFAZOLIN 2 GM/D5W RTU 2 GM/50 ML RTUPB IV SCH (06:00)
[2020-07-27 06:16] LABS: ARTERIAL BLOOD BASE EXCESS -0.5 mmol/L; ARTERIAL BLOOD H2CO3 1.53 mmol/L (1.05-1.35); ARTERIAL BLOOD HCO3 26.2 mmol/L (20-24); ARTERIAL BLOOD O2 SATURATION 98.2 % (94-98); ARTERIAL BLOOD PCO2 50.9 mmHg (35-45); ARTERIAL BLOOD PH 7.33 (7.35-7.45); ARTERIAL BLOOD TOTAL CO2 27.8 mmol/L (21-25)
[2020-07-27 06:19] LABS: ARTERIAL BLOOD FIO2 80%
--- NOTE | 2020-07-27 09:04 | RADIOLOGY REPORT (SQ) ---
EXAM DESCRIPTION: CHEST SINGLE VIEW IMAGES COMPLETED DATE/TIME: 07/27/2020 6:19 am REASON FOR STUDY: Intubated COMPARISON: 07/26/2020 EXAM PARAMETERS: NUMBER OF VIEWS: One view. TECHNIQUE: Single frontal radiographic view of the chest acquired. RADIATION DOSE: NA LIMITATIONS: None. FINDINGS: LUNGS AND PLEURA: The patient is rotated to the left. Since the previous examination, in terval placement of endotracheal tube, with the tip suggested to be approximately 1.7 cm proximal to the zach. No change in the appearance of the lungs. No pneumothorax. MEDIASTINUM AND HILAR STRUCTURES: No masses. Contour normal. HEART AND VASCULAR STRUCTURES: Heart normal in size. Normal vasculature. BONES: No acute findings. HARDWARE: None in the chest. OTHER: No other significant finding. IMPRESSION: 1. The patient is rotated which limits evaluation. The endotracheal tube appears to be approximately 1.7 cm proximal to the zach. A repeat examination to better delineate the tip of th e tube which appears to need to be repositioned. TECHNICAL DOCUMENTATION: JOB ID: [id number] 2010 [employer]- All Rights Reserved Reading location - IP/workstation name: [email or web address]
[2020-07-27] MEDS ORDERED: VANCOMYCIN HCL INJ 1000 MG VIAL IV SCH (10:00)
[2020-07-27] MEDS: DOCUSATE SODIUM 100 MG/10 ML UDC NG SCH ×2 (11:56→18:59)
[2020-07-27] MEDS: FONDAPARINUX SODIUM INJ 2.5 MG/0.5 ML DISP.SYRIN SUBCUT SCH (11:56)
[2020-07-27] MEDS: PANTOPRAZOLE SODIUM 40 MG VIAL IV SCH ×2 (11:56→21:49)
[2020-07-27] MEDS: PROPOFOL 1,000 MG/100 ML INFUS..BTL IV PRN ×2 (12:46→19:00)
[2020-07-27] MEDS ORDERED: ALBUTEROL SULFATE 0.083% NEB 2.5 MG/3 ML AMPUL NEB PRN (14:06)
--- NOTE | 2020-07-27 15:16 | EKG REPORT ---
SEVERITY:- ABNORMAL ECG - SINUS RHYTHM VENTRICULAR PREMATURE COMPLEX LEFT ANTERIOR FASCICULAR BLOCK PROBABLE LEFT VENTRICULAR HYPERTROPHY : Confirmed by: June Whyte MD 27-Jul-2020 15:15:12
[2020-07-27] MEDS: CEFTRIAXONE 1 GM/D5W RTU 1 GM/50 ML RTUPB IV SCH (15:44)
[2020-07-27 17:01] LABS: ARTERIAL BLOOD H2CO3 1.49 mmol/L (1.05-1.35); ARTERIAL BLOOD HCO3 28.2 mmol/L (20-24); ARTERIAL BLOOD PCO2 49.4 mmHg (35-45); ARTERIAL BLOOD PH 7.37 (7.35-7.45); ARTERIAL BLOOD TOTAL CO2 29.7 mmol/L (21-25)
[2020-07-27 17:09] LABS: ARTERIAL BLOOD FIO2 40%
[2020-07-27] MEDS ORDERED: CEFAZOLIN SODIUM 2 GM in DEXTROSE 5%-WATER 100 ML IV SCH (18:00)
--- NOTE | 2020-07-27 18:52 | XCELERA REPORT ---
[address] [address] Transthoracic Echocardiogram Report Name: LUCIA WINKLER Age: 65 yrs Gender: Female : 1955 Patient Status: Inpatient Patient Location: ICU^601^A Study Date: 07/27/2020 11:20 AM Height: 67 in Weight: 330 lb BSA: 2.5 m2 Procedure: A two-dimensional transthoracic echocardiogram with color flow and Doppler was performed. Study Quality: Poor. Poor endocardial visualisation. Reason For Study: Shock elevated troponin History: Shock / Elevated troponin. Ordering Physician: AFSANEH MESSINA Performed By: Christina Holley Interpretation Summary The left ventricle is normal in size. Probably mild LVH.Probably no defenite wall motion abnormality. LV EF is > than 65% Left ventricular systolic function is normal. Doppler measurements suggest impaired left ventricular relaxation, which is associated with grade I/IV or mild diastolic dysfunction There is no thrombus. No ASD,VSD,or PFO seen. The right atrium is normal. The left atrium is moderately dilated. There is no evidence of mitral valve prolapse. There is no mitral valve stenosis. There is a trace amount of mitral regurgitation There is no aortic valvular vegetation. There is mild aortic stenosis There is a peak gradient of 16.1 mm of Hg. No hemodynamically significant valvular aortic stenosis. No aortic regurgitation is present. There is no tricuspid stenosis. There is a trace amount of tricuspid regurgitation There is mild pulmonary hypertension by echo RVSP is 36 to 41 mm f Hgg , with RA mean of 5 to 10. There is no pulmonic valvular stenosis. There is no pulmonic valvular regurgitation. The aortic root is not well visualized but is probably normal size. The inferior vena cava appeared normal and decreased > 50% with respiration (RAP 5-10 mmHg) There is no pericardial effusion. MMode/2D Measurements & Calculations RVDd: 3.9 cm LVIDd: 5.1 cm FS: 43.0 % Ao root diam: 2.6 cm IVSd: 1.2 cm LVIDs: 2.9 cm EDV(Teich): 126.1 ml Ao root area: 5.2 cm2 LVPWd: 1.1 cm ESV(Teich): 33.0 ml LA dimension: 4.6 cm EF(Teich): 73.8 % Doppler Measurements & Calculations MV E max cassie: MV P1/2t max cassie: Ao V2 max: LV V1 max P.5 cm/sec 74.5 cm/sec 200.7 cm/sec 7.5 mmHg MV A max cassie: MV P1/2t: 92.6 msec Ao max PG: LV V1 max: 97.2 cm/sec MVA(P1/2t): 2.4 cm2 16.1 mmHg 137.2 cm/sec MV E/A: 0.76 MV dec slope: 235.8 cm/sec2 MV dec time: 0.31 sec PA V2 max: TR max cassie: MV P1/2t-pr_phl: 86.4 cm/sec 276.9 cm/sec 92.6 msec PA max PG: TR max P.7 mmHg 3.0 mmHg Left Ventricle The left ventricle is normal in size. Probably mild LVH.Probably no defenite wall motion abnormality. LV EF is > than 65%. Left ventricular systolic function is normal. Doppler measurements suggest impaired left ventricular relaxation, which is associated with grade I/IV or mild diastolic dysfunction. There is no thrombus. No ASD,VSD,or PFO seen. Right Ventricle The right ventricle is not well visualized secondary to technical limitations. Atria The right atrium is normal. The left atrium is moderately dilated. Mitral Valve There is no evidence of mitral valve prolapse. There is no mitral valve stenosis. There is a trace amount of mitral regurgitation. Aortic Valve There is no aortic valvular vegetation. There is mild aortic stenosis. There is a peak gradient of 16.1 mm of Hg. No hemodynamically significant valvular aortic stenosis. No aortic regurgitation is present. Tricuspid Valve There is no tricuspid stenosis. There is a trace amount of tricuspid regurgitation. There is mild pulmonary hypertension by echo. RVSP is 36 to 41 mm f Hgg , with RA mean of 5 to 10. Pulmonic Valve There is no pulmonic valvular stenosis. There is no pulmonic valvular regurgitation. Great Vessels The aortic root is not well visualized but is probably normal size. The inferior vena cava appeared normal and decreased > 50% with respiration (RAP 5-10 mmHg). Effusions There is no pericardial effusion. : AFSANEH MESSINA, June
[2020-07-27] MEDS: VANCOMYCIN HCL 1,000 MG in DEXTROSE 5%-WATER 250 ML IV SCH (18:59)
[2020-07-27] MEDS: AZITHROMYCIN 500 MG in DEXTROSE 5%-WATER 250 ML IV SCH (19:05)
[2020-07-27] MEDS: BUDESONIDE NEB 0.25 MG/2 ML AMPUL NEB SCH (19:33)
[2020-07-27] MEDS: METHYLPREDNISOLONE INJ 125 MG/2 ML SDV IV SCH (21:48)
[2020-07-28] MEDS: PROPOFOL 1,000 MG/100 ML INFUS..BTL IV PRN ×3 (00:35→08:14)
--- NOTE | 2020-07-28 00:37 | RADIOLOGY REPORT (SQ) ---
EXAM: US Duplex Right Lower Extremity Arteries EXAM DATE/TIME: 07/27/2020 9:18 PM CLINICAL HISTORY: The patient is 65 years old and is Female; foot discoloration TECHNIQUE: Real-time duplex ultrasound scan of the right lower extremity arteries integrating B-mode two-dimensional vascular structure, Doppler spectral analysis and color flow Doppler imaging. COMPARISON: No relevant prior studies available. FINDINGS: There is mild to moderate calcified plaque throughout the right lower extremity arterial vasculature. No obvious occlusion visualized. RIGHT COMMON FEMORAL ARTERY: Velocity in the common femoral artery is 164 cm/s, with triphasic waveform. RIGHT SUPERFICIAL FEMORAL ARTERY: Velocity in the superficial femoral artery measures 20 cm/s proximally. Peak systolic velocity ratio of the common femoral artery to the proximal superficial femoral artery is greater than 4, indicating greater than or equal to 75% stenosis at the distal aspect of the common femoral artery or origin of the superficial femoral artery. Velocity in the superficial femoral artery measures 30 cm/s at the mid aspect, and 26 cm/s distally. Monophasic waveforms throughout with spectral broadening. RIGHT POPLITEAL ARTERY: Velocity in the popliteal artery measures 40 cm/s proximally and 32 cm/s distally. Monophasic waveforms. RIGHT CALF/FOOT ARTERIES: Velocity in the posterior tibial artery measures 10 cm proximally and 13 cm/s distally. Velocity in the anterior tibial artery measures 30 cm/s proximally and 10 cm/s distally. Velocity in the peroneal artery measures 8 cm/s distally. Velocity in the dorsalis pedis artery is 9 cm/s. Monophasic waveforms throughout. OTHER ARTERIES: Velocity in the profunda femoral artery is 293 cm/s with triphasic waveform. This elevated velocity indicates stenosis of the profunda femoral artery. The left dorsalis pedis artery was also interrogated and demonstrates velocity of 61 cm/s with monophasic waveform. SOFT TISSUES: Unremarkable. IMPRESSION: No occlusion visualized. However, systolic velocities and waveforms indicate at least 75% stenosis at the distal aspect of the common femoral artery or proximal aspect of the superficial femoral artery. If not contraindicated, CTA of the right lower extremity could be performed for further evaluation.
[2020-07-28] MEDS: IPRATROPIUM/ALBUTEROL 0.5-2.5 MG/3 ML AMPUL NEB SCH ×4 (02:53→20:51)
[2020-07-28] MEDS: RINGERS SOLUTION,LACTATED 1,000 ML IV PRN ×2 (04:55→17:18)
[2020-07-28 04:57] LABS: ARTERIAL BLOOD BASE EXCESS 1.9 mmol/L; ARTERIAL BLOOD H2CO3 1.52 mmol/L (1.05-1.35); ARTERIAL BLOOD HCO3 28.2 mmol/L (20-24); ARTERIAL BLOOD O2 SATURATION 92.6 % (94-98); ARTERIAL BLOOD PCO2 50.6 mmHg (35-45); ARTERIAL BLOOD PH 7.36 (7.35-7.45); ARTERIAL BLOOD PO2 67.4 mmHg (80-100); ARTERIAL BLOOD TOTAL CO2 29.8 mmol/L (21-25)
[2020-07-28 04:58] LABS: ARTERIAL BLOOD FIO2 40%
[2020-07-28 06:16] LABS: HEMATOCRIT 41.8 % (36.0-47.0); MEAN CORPUSCULAR HEMOGLOBIN 28.8 pg (27.0-33.4); MEAN CORPUSCULAR HGB CONC 32.9 g/dL (32.0-36.0); MEAN CORPUSCULAR VOLUME 88 fl (80-97); PLATELET COUNT 139 10^3/uL (150-450); RED BLOOD COUNT 4.76 10^6/uL (3.72-5.28); RED CELL DISTRIBUTION WIDTH 16.4 % (11.5-14.0)
[2020-07-28] MEDS: METHYLPREDNISOLONE INJ 125 MG/2 ML SDV IV SCH ×3 (06:29→21:42)
[2020-07-28 06:35] LABS: ALBUMIN 2.6 g/dL (3.5-5.0); ALKALINE PHOSPHATASE 51 U/L (38-126); ANION GAP 9 (5-19); ASPARTATE AMINO TRANSFERASE 340 U/L (14-36); BILIRUBIN,DIRECT 0.6 mg/dL (0.0-0.4); BILIRUBIN,TOTAL 0.8 mg/dL (0.2-1.3); BLOOD UREA NITROGEN 103 mg/dL (7-20); CALCIUM 7.9 mg/dL (8.4-10.2); CARBON DIOXIDE 30 mmol/L (22-30); CHLORIDE 95 mmol/L (98-107); GLUCOSE 139 mg/dL (75-110); POTASSIUM 4.3 mmol/L (3.6-5.0); TOTAL PROTEIN 5.3 g/dL (6.3-8.2)
[2020-07-28 06:40] LABS: HEMOGLOBIN 13.7 g/dL (12.0-15.5)
[2020-07-28 06:41] LABS: PHOSPHORUS 5.9 mg/dL (2.5-4.5)
[2020-07-28 06:44] LABS: BASOPHILS % (MANUAL) 0 % (0-2); EOSINOPHILS % (MANUAL) 0 % (0-6); LYMPHOCYTES % (MANUAL) 0 % (13-45); MONOCYTES % (MANUAL) 0 % (3-13); SEGMENTED NEUTROPHILS % (MAN) 100 % (42-78); TOTAL CELLS COUNTED 100
[2020-07-28 06:47] LABS: ANISOCYTOSIS 1+; PLATELET COMMENT ADEQUATE; POIKILOCYTOSIS SLIGHT; POLYCHROMASIA SLIGHT; RBC MORPHOLOGY COMMENT NORMO-CYTIC/CHROMIC; TEAR DROP CELLS 1+; TOXIC GRANULATION 1+
[2020-07-28] MEDS: FONDAPARINUX SODIUM INJ 2.5 MG/0.5 ML DISP.SYRIN SUBCUT SCH (08:49)
[2020-07-28] MEDS: BUDESONIDE NEB 0.25 MG/2 ML AMPUL NEB SCH ×2 (09:06→20:51)
[2020-07-28] MEDS ORDERED: FUROSEMIDE INJ/PF 40 MG/4 ML SDV IV ONE (09:16)
[2020-07-28] MEDS: DOCUSATE SODIUM 100 MG/10 ML UDC NG SCH (09:26)
[2020-07-28] MEDS: CEFTRIAXONE 1 GM/D5W RTU 1 GM/50 ML RTUPB IV SCH (09:26)
[2020-07-28] MEDS: AZITHROMYCIN 500 MG in DEXTROSE 5%-WATER 250 ML IV SCH (09:27)
[2020-07-28] MEDS: PANTOPRAZOLE SODIUM 40 MG VIAL IV SCH ×2 (09:27→21:42)
--- NOTE | 2020-07-28 17:01 | PDOC CRITICAL CARE PROG REPORT ---
General Date:: 07/28/20 ICU Day:: 2 Ventilator Day:: 2 Hospital Day:: 2 Resuscitation Status: Full Code Events in the past 12 to 24 Hours:: This 65-year-old female originally presented to [facility] emergency department on 07/26/2020 with complaints of increasing shortness of breath over several days. She was found to be obtunded on her bathroom floor by a relative. Unknown downtime. EMS was called, and the patient was found to be hypoxic. She was placed on supplemental oxygen and transferred to the emergency department she was placed on BiPAP support upon arrival to the emergency depar tment and was subsequently urgently intubated. She was admitted with a working diagnosis of sepsis/septic shock of unknown etiology. She was initiated on blood pressure support with norepinephrine. Lab findings also suggest that the patient had rhabdomyolysis and acute kidney injury. She is a COVID PUI. 07/28: On propofol for sedation. Off vasopressors. Arousable. Follows commands. On SIMV (PRVC) 20/400/60/8 + PSV 10. Chest x-ray shows increased interstitial markings with likely left lower lobe infiltrate. Labs show overall trend toward improvement, except for rising creatinine, 2.03. CK total 19,914-->24,294-->-->10,448. proBNP 7910-->-->1950. Review of systems relevant to events:: Neurologic: Altered mental status Respiratory: Dyspnea, acute hypercapnic and hypoxemic respiratory failure, COPD exacerbation, suspected pneumonia Musculoskeletal: Rhabdomyolysis Reason for ICU Addmission:: Acute Hypercarbic respiratory failure - Medications: Medications reviewed and adjusted accordingly: Yes Sedation:: Propofol Physical Exam Vital Signs: Temp Pulse Resp BP Pulse Ox 98.2 F 66 17 117/75 98 07/28/20 08:00 07/28/20 08:00 07/28/20 08:00 07/28/20 08:00 07/28/20 08:00 Intake & Output 07/27/20 07/28/20 07/29/20 06:59 06:59 06:59 Intake Total 3312 2407 100 Output Total 79 480 75 Balance 3233 1927 25 Weight 149.8 kg 153.4 kg Weight/Height Weight 153.4 kg Height 1.7 m General appearance: PRESENT: no acute distress, well-developed, well-nourished Head exam: PRESENT: atraumatic, normocephalic Eye exam: PRESENT: conjunctiva pink, EOMI, PERRLA. ABSENT: scleral icterus Mouth exam: PRESENT: moist, tongue midline Neck exam: ABSENT: carotid bruit, JVD, lymphadenopathy, thyromegaly Respiratory exam: PRESENT: rales - Left greater than right, rhonchi - Left greater than right Cardiovascular exam: PRESENT: RRR. ABSENT: diastolic murmur, rubs, systolic murmur Pulses: PRESENT: normal dorsalis pedis pul GI/Abdominal exam: PRESENT: normal bowel sounds, soft. ABSENT: distended, guarding, mass, organolmegaly, rebound, tenderness Gentrourinary exam: PRESENT: indwelling catheter Extremities exam: PRESENT: full ROM, pedal edema, +1 edema. ABSENT: calf tenderness, clubbing Musculoskeletal exam: PRESENT: normal inspection. ABSENT: deformity Neurological exam: PRESENT: reflexes normal, CN II-XII grossly intact. ABSENT: motor sensory deficit Psychiatric exam: ABSENT: agitated, anxious Skin exam: PRESENT: dry, intact, warm. ABSENT: cyanosis, rash Tubes/Lines: PRESENT: Endotracheal Tube Laboratory/Radiographs Laboratory Results: 07/28/20 05:49 07/28/20 05:49 07/27/20 07/28/20 07/28/20 16:39 04:35 05:49 WBC RBC Hgb Hct MCV MCH MCHC RDW Plt Count Seg Neutrophils % Carbonic Acid 1.49 H 1.52 H HCO3/H2CO3 Ratio 18:1 18:1 ABG pH 7.37 7.36 ABG pCO2 49.4 H 50.6 H ABG pO2 68.0 L 67.4 L ABG HCO3 28.2 H 28.2 H ABG O2 Saturation 93.0 L 92.6 L ABG Base Excess 2.0 1.9 FiO2 40% 40% Sodium Potassium Chloride Carbon Dioxide Anion Gap BUN Creatinine Est GFR ( Amer) Glucose Calcium Phosphorus 5.9 H Magnesium 2.7 H Total Bilirubin AST Alkaline Phosphatase Total Protein Albumin 07/28/20 07/28/20 05:49 05:49 WBC 20.0 H RBC 4.76 Hgb 13.7 D Hct 41.8 MCV 88 MCH 28.8 MCHC 32.9 RDW 16.4 H Plt Count 139 L Seg Neutrophils % Not Reportable Carbonic Acid HCO3/H2CO3 Ratio ABG pH ABG pCO2 ABG pO2 ABG HCO3 ABG O2 Saturation ABG Base Excess FiO2 Sodium 133.7 L Potassium 4.3 Chloride 95 L Carbon Dioxide 30 Anion Gap 9 BUN 103 H Creatinine 2.03 H Est GFR ( Amer) 30 L Glucose 139 H Calcium 7.9 L Phosphorus Magnesium Total Bilirubin 0.8 AST 340 H Alkaline Phosphatase 51 Total Protein 5.3 L Albumin 2.6 L 07/26/20 07/26/20 07/26/20 18:10 18:10 18:10 Creatine Kinase 96406 H CK-MB (CK-2) Troponin I 0.478 NT-Pro-B Natriuret Pep 7910 H 07/26/20 07/27/20 07/27/20 21:31 03:30 03:30 Creatine Kinase Cancelled CK-MB (CK-2) 296.00 H Troponin I 0.411 0.490 NT-Pro-B Natriuret Pep 6640 H 07/27/20 07/27/20 07/27/20 05:08 09:09 11:55 Creatine Kinase Cancelled 27439 H CK-MB (CK-2) Troponin I 0.522 NT-Pro-B Natriuret Pep 07/27/20 07/28/20 07/28/20 21:59 05:49 05:49 Creatine Kinase 96869 H 46321 H CK-MB (CK-2) Troponin I NT-Pro-B Natriuret Pep 1950 H Impressions: Extremity Arterial Study 07/27/20 00:00 IMPRESSION: No occlusion visualized. However, systolic velocities and waveforms indicate at least 75% stenosis at the distal aspect of the common femoral artery or proximal aspect of the superficial femoral artery. If not contraindicated, CTA of the right lower extremity could be performed for further evaluation. Chest X-Ray 07/27/20 04:00 IMPRESSION: 1. The patient is rotated which limits evaluation. The endotracheal tube appears to be approximately 1.7 cm proximal to the zach. A repeat examination to better delineate the tip of the tube which appears to need to be repositioned. All labs, radiographs, diagnostic studies and EKGs were personally reviewed: Yes In addition, reports of radiographic and diagnostic studies were read: Yes Assessment and Plan - Diagnosis (1) Acute and chronic respiratory failure Qualifiers: Respiratory failure complication: hypoxia and hypercapnia Qualified Code(s): J96.21 - Acute and chronic respiratory failure with hypoxia; J96.22 - Acute and chronic respiratory failure with hypercapnia Is this a current diagnosis for this admission?: Yes Plan: * Wean to extubate. (2) Sepsis Qualifiers: Sepsis type: sepsis due to unspecified organism Sepsis acute organ dysfunction status: unspecified Qualified Code(s): A41.9 - Sepsis, unspecified organism Is this a current diagnosis for this admission?: Yes Plan: * Sepsis/septic shock, suspected to be secondary to pneumonia. * Shock physiology has resolved. * On empiric Rocephin/azithromycin/vancomycin. (3) Elevated troponin Is this a current diagnosis for this admission?: Yes Plan: * Trend troponin. * Repeat 12-lead EKG today. * 2D Echo (07/27): Probably mild LVH; no definite wall motion abnormality; LVEF greater than 65%. Grade 1/4 diastolic dysfunction. LA moderately dilated. (5) Pneumonia Qualifiers: Pneumonia type: due to unspecified organism Laterality: left Lung location: lower lobe of lung Qualified Code(s): J18.9 - Pneumonia, unspecified organism Is this a current diagnosis for this admission?: Yes Plan: Continue empiric Rocephin/azithromycin/vancomycin. (6) Abnormal LFTs Is this a current diagnosis for this admission?: Yes Plan: Likely reflecting shock liver. Improving. (7) Acute kidney injury Is this a current diagnosis for this admission?: Yes Plan: * Likely reflecting complications of rhabdomyolysis and prolonged hypoxia. * Renal dosing medications. * Avoid nephrotoxic drugs. (8) Morbid obesity with BMI of 50.0-59.9, adult Is this a current diagnosis for this admission?: Yes Plan: * Clinically, she is high risk for obstructive sleep apnea. She will need to be closely monitored after extubation. (9) Rhabdomyolysis Qualifiers: Rhabdomyolysis type: non-traumatic Qualified Code(s): M62.82 - Rhabdomyolysis Is this a current diagnosis for this admission?: Yes Plan: * IV fluids: LR at 100 mL/h. * May need diuresis. (10) Azotemia Is this a current diagnosis for this admission?: Yes Plan: * Suspect this is secondary to her rhabdomyolysis, which is improving. * Check Gastroccult/Hemoccult for completeness. Critical Time Critical Time (minutes): 90 Level of Care: ICU -: 1. The care of a critical patient is a dynamic process. This note is a sales representative jewelry synopsis but static in nature. The timeframe for treatments given in order is not necessarily the actual time these treatments may have been done. 2. This patient requires critical care secondary to ongoing requirements for therapy not offered or safe outside the critical care environment. Transfer to a lower level of care will result in altered life or limb morbidity and mortality. 3. Multidisciplinary rounds completed. 4. ABCDE bundle addressed.
[2020-07-28] MEDS: VANCOMYCIN HCL 1,000 MG in DEXTROSE 5%-WATER 250 ML IV SCH (17:58)
[2020-07-28] MEDS: DOCUSATE SODIUM 100 MG CAPSULE PO SCH (18:13)
[2020-07-28] MEDS ORDERED: ACETAMINOPHEN 325 MG TABLET PO PRN (18:30)
--- NOTE | 2020-07-28 19:24 | EKG REPORT ---
SEVERITY:- ABNORMAL ECG - SINUS RHYTHM VENTRICULAR PREMATURE COMPLEX LEFT ANTERIOR FASCICULAR BLOCK PROBABLE ANTEROSEPTAL INFARCT, AGE INDETERM : Confirmed by: June Whyte MD 28-Jul-2020 19:24:15
[2020-07-28] MEDS ORDERED: NICOTINE 7 MG/24 HR PATCH.TD24 TD ONE (22:30)
[2020-07-28 22:33] LABS: HEMATOCRIT 41.3 % (36.0-47.0); HEMOGLOBIN 13.4 g/dL (12.0-15.5); MEAN CORPUSCULAR HEMOGLOBIN 28.5 pg (27.0-33.4); MEAN CORPUSCULAR HGB CONC 32.5 g/dL (32.0-36.0); MEAN CORPUSCULAR VOLUME 88 fl (80-97); PLATELET COUNT 130 10^3/uL (150-450); RED BLOOD COUNT 4.71 10^6/uL (3.72-5.28); RED CELL DISTRIBUTION WIDTH 16.1 % (11.5-14.0); WHITE BLOOD COUNT 18.9 10^3/uL (4.0-10.5)
[2020-07-28 23:11] LABS: ABSOLUTE LYMPHOCYTES# (MANUAL) 0.6 10^3/uL (0.5-4.7); ABSOLUTE MONOCYTES # (MANUAL) 0.4 10^3/uL (0.1-1.4); BASOPHILS % (MANUAL) 0 % (0-2); EOSINOPHILS % (MANUAL) 0 % (0-6); LYMPHOCYTES % (MANUAL) 3 % (13-45); MONOCYTES % (MANUAL) 2 % (3-13); SEGMENTED NEUTROPHILS % (MAN) 95 % (42-78); TOTAL CELLS COUNTED 100
[2020-07-28 23:12] LABS: TOXIC GRANULATION SLIGHT; TOXIC VACUOLATION PRESENT
[2020-07-28 23:13] LABS: ANISOCYTOSIS 1+; PLATELET COMMENT DECREASED
[2020-07-28] MEDS ORDERED: NICOTINE 7 MG/24 HR PATCH.TD24 ONE (23:41)
[2020-07-29] MEDS: IPRATROPIUM/ALBUTEROL 0.5-2.5 MG/3 ML AMPUL NEB SCH ×4 (02:38→20:05)
[2020-07-29] MEDS: METHYLPREDNISOLONE INJ 125 MG/2 ML SDV IV SCH (05:20)
[2020-07-29] MEDS: RINGERS SOLUTION,LACTATED 1,000 ML IV PRN (05:21)
[2020-07-29] MEDS ORDERED: FUROSEMIDE INJ/PF 40 MG/4 ML SDV IV ONE (05:45)
[2020-07-29 06:41] LABS: ANION GAP 9 (5-19); BLOOD UREA NITROGEN 93 mg/dL (7-20); CALCIUM 8.1 mg/dL (8.4-10.2); CARBON DIOXIDE 29 mmol/L (22-30); CHLORIDE 94 mmol/L (98-107); GLUCOSE 224 mg/dL (75-110); PHOSPHORUS 4.5 mg/dL (2.5-4.5); POTASSIUM 4.4 mmol/L (3.6-5.0)
[2020-07-29 07:13] LABS: CREATINE KINASE 4046 U/L (30-135)
[2020-07-29] MEDS ORDERED: RINGERS SOLUTION,LACTATED 1,000 ML IV PRN (07:42)
[2020-07-29] MEDS: BUDESONIDE NEB 0.25 MG/2 ML AMPUL NEB SCH ×2 (08:34→20:05)
[2020-07-29] MEDS: FONDAPARINUX SODIUM INJ 2.5 MG/0.5 ML DISP.SYRIN SUBCUT SCH (09:19)
[2020-07-29] MEDS: DOCUSATE SODIUM 100 MG CAPSULE PO SCH ×2 (09:19→18:01)
[2020-07-29] MEDS: NICOTINE 7 MG/24 HR PATCH.TD24 TD SCH (09:19)
[2020-07-29] MEDS: PANTOPRAZOLE SODIUM 40 MG VIAL IV SCH ×2 (09:20→21:44)
[2020-07-29] MEDS: AZITHROMYCIN 500 MG in DEXTROSE 5%-WATER 250 ML IV SCH (09:21)
[2020-07-29] MEDS: CEFTRIAXONE 1 GM/D5W RTU 1 GM/50 ML RTUPB IV SCH (09:21)
--- NOTE | 2020-07-29 11:59 | PDOC CRITICAL CARE PROG REPORT ---
General Date:: 07/29/20 ICU Day:: 3 Hospital Day:: 3 Resuscitation Status: Full Code Events in the past 12 to 24 Hours:: This 65-year-old female originally presented to [facility] emergency department on 07/26/2020 with complaints of increasing shortness of breath over several days. She was found to be obtunded on her b athroom floor by a relative. Unknown downtime. EMS was called, and the patient was found to be hypoxic. She was placed on supplemental oxygen and transferred to the emergency department she was placed on BiPAP support upon arrival to the emergency department and was subsequently urgently intubated. She was admitted with a working diagnosis of sepsis/septic shock of unknown etiology. She was i nitiated on blood pressure support with norepinephrine. Lab findings also suggest that the patient had rhabdomyolysis and acute kidney injury. She is a COVID PUI. 07/28: On propofol for sedation. Off vasopressors. Arousable. Follows commands. On SIMV (PRVC) 20/400/60/8 + PSV 10. Chest x-ray shows increased interstitial markings with likely left lower lobe infiltrate. Labs show overall trend toward improvement, except for rising creatinine, 2.03. CK total 19,914-->24,294-->-->10,448. proBNP 7910-->-->1950. 07/29: Successfully extubated yesterday morning. On 4 LPM via nasal cannula. Refused to use CPAP overnight. Creatinine is now downtrending, 1.7. CK total 4046. COVID-negative. Review of systems relevant to events:: Neurologic: Altered mental status Respiratory: Dyspnea, acute hypercapnic and hypoxemic respiratory failure, COPD exacerbation, suspected pneumonia Musculoskeletal: Rhabdomyolysis Reason for ICU Addmission:: Acute Hypercarbic respiratory failure - Medications: Medications reviewed and adjusted accordingly: Yes Physical Exam Vital Signs: Temp Pulse Resp BP Pulse Ox 98.2 F 76 20 126/67 H 97 07/29/20 08:11 07/29/20 08:00 07/29/20 08:00 07/29/20 08:00 07/29/20 08:00 Intake & Output 07/28/20 07/29/20 07/30/20 06:59 06:59 06:59 Intake Total 2907 4230 Output Total 480 3000 400 Balance 2427 1230 -400 Weight 153.4 kg 157.3 kg Weight/Height Weight 157.3 kg Height 1.7 m General appearance: PRESENT: no acute distress, well-developed, well-nourished Head exam: PRESENT: atraumatic, normocephalic Eye exam: PRESENT: conjunctiva pink, EOMI, PERRLA. ABSENT: scleral icterus Mouth exam: PRESENT: moist, tongue midline Neck exam: ABSENT: carotid bruit, JVD, lymphadenopathy, thyromegaly Respiratory exam: PRESENT: clear to auscultation ana. ABSENT: rales, rhonchi, wheezes Cardiovascular exam: PRESENT: RRR. ABSENT: diastolic murmur, rubs, systolic murmur Pulses: PRESENT: normal dorsalis pedis pul GI/Abdominal exam: PRESENT: normal bowel sounds, soft. ABSENT: distended, guarding, mass, organolmegaly, rebound, tenderness Extremities exam: PRESENT: full ROM. ABSENT: calf tenderness, clubbing, pedal edema Neurological exam: PRESENT: alert, awake, oriented to person, oriented to place, oriented to time, oriented to situation, CN II-XII grossly intact. ABSENT: mot or sensory deficit Psychiatric exam: PRESENT: appropriate affect, normal mood. ABSENT: homicidal ideation, suicidal ideation Skin exam: PRESENT: dry, intact, warm. ABSENT: cyanosis, rash Laboratory/Radiographs Laboratory Results: 07/28/20 21:54 07/29/20 03:55 07/28/20 07/29/20 21:54 03:55 WBC 18.9 H RBC 4.71 Hgb 13.4 Hct 41.3 MCV 88 MCH 28.5 MCHC 32.5 RDW 16.1 H Plt Count 130 L Seg Neutrophils % Not Reportable Sodium 132.2 L Potassium 4.4 Chloride 94 L Carbon Dioxide 29 Anion Gap 9 BUN 93 H Creatinine 1.68 H Est GFR ( Amer) 37 L Glucose 224 H Calcium 8.1 L Phosphorus 4.5 Magnesium 2.4 H 07/27/20 00:07 Gilbert Catheter Urine Culture - Final NO GROWTH 2 DAYS 07/26/20 18:10 Blood Blood Culture (PCR) - Final 07/26/20 07/26/20 07/26/20 18:10 18:10 18:10 Creatine Kinase 43387 H CK-MB (CK-2) Troponin I 0.478 NT-Pro-B Natriuret Pep 7910 H 07/26/20 07/27/20 07/27/20 21:31 03:30 03:30 Creatine Kinase Cancelled CK-MB (CK-2) 296.00 H Troponin I 0.411 0.490 NT-Pro-B Natriuret Pep 6640 H 07/27/20 07/27/20 07/27/20 05:08 09:09 11:55 Creatine Kinase Cancelled 87316 H CK-MB (CK-2) Troponin I 0.522 NT-Pro-B Natriuret Pep 07/27/20 07/28/20 07/28/20 21:59 05:49 05:49 Creatine Kinase 76575 H 68214 H CK-MB (CK-2) Troponin I NT-Pro-B Natriuret Pep 1950 H 07/28/20 07/28/20 07/28/20 11:23 15:08 21:54 Creatine Kinase 6208 H 4875 H CK-MB (CK-2) Troponin I 0.308 NT-Pro-B Natriuret Pep 07/29/20 03:55 Creatine Kinase 4046 H CK-MB (CK-2) Troponin I NT-Pro-B Natriuret Pep Impressions: Extremity Arterial Study 07/27/20 00:00 IMPRESSION: No occlusion visualized. However, systolic velocities and waveforms indicate at least 75% stenosis at the distal aspect of the common femoral artery or proximal aspect of the superficial femoral artery. If not contraindicated, CTA of the right lower extremity could be performed for further evaluation. Chest X-Ray 07/27/20 04:00 IMPRESSION: 1. The patient is rotated which limits evaluation. The endotracheal tube appears to be approximately 1.7 cm proximal to the zach. A repeat examination to better delineate the tip of the tube which appears to need to be repositioned. All labs, radiographs, diagnostic studies and EKGs were personally reviewed: Yes In addition, reports of radiographic and diagnostic studies were read: Yes Assessment and Plan - Diagnosis (1) Acute and chronic respiratory failure Qualifiers: Respiratory failure complication: hypoxia and hypercapnia Qualified Code(s): J96.21 - Acute and chronic respiratory failure with hypoxia; J96.22 - Acute and chronic respiratory failure with hypercapnia Is this a current diagnosis for this admission?: Yes Plan: * Successfully extubated yesterday. * CPAP nightly for suspected sleep apnea. * Decrease Solu-Medrol to every 12 hours dosing. (2) Sepsis Qualifiers: Sepsis type: sepsis due to unspecified organism Sepsis acute organ dy sfunction status: unspecified Qualified Code(s): A41.9 - Sepsis, unspecified organism Is this a current diagnosis for this admission?: Yes Plan: * Sepsis/septic shock, suspected to be secondary to pneumonia. * Shock physiology has resolved. * On empiric Rocephin/azithromycin/vancomycin. (3) Elevated troponin Is this a current diagnosis for this admission?: Yes Plan: * 2D Echo (07/27): Probably mild LVH; no definite wall motion abnormality; LVEF greater than 65%. Grade 1/4 diastolic dysfunction. LA moderately dilated. (4) Rhabdomyolysis Qualifiers: Rhabdomyolysis type: non-traumatic Qualified Code(s): M62.82 - Rhabdomyolysis Is this a current diagnosis for this admission?: Yes Plan: * IV fluids: LR at 100 mL/h. * Got a dose of furosemide 40 mg IV single dose this a.m. * Stop trending CK total. (5) COPD exacerbation Is this a current diagnosis for this admission?: Yes Plan: * Decrease Solu-Medrol. * Continue DuoNeb. * Continue budesonide. (6) Pneumonia Qualifiers: Pneumonia type: due to unspecified organism Laterality: left Lung location: lower lobe of lung Qualified Code(s): J18.9 - Pneumonia, unspecified organism Is this a current diagnosis for this admission?: Yes Plan: * Continue empiric Rocephin/azithromycin/vancomycin. * Stop vancomycin after 3 days in the absence of compelling indication for continued administration. * Stop azithromycin after 5-day course. (7) Acute kidney injury Is this a current diagnosis for this admission?: Yes Plan: * Proving, likely reflecting complications of rhabdomyolysis and prolonged hypoxia. * Renal dosing medications. * Avoid nephrotoxic drugs. (8) Morbid obesity with BMI of 50.0-59.9, adult Is this a current diagnosis for this admission?: Yes (9) Azotemia Is this a current diagnosis for this admission?: Yes (10) Abnormal LFTs Is this a current diagnosis for this admission?: Yes (11) Hyperglycemia Is this a current diagnosis for this admission?: Yes Plan: * Likely due to steroids. * Check hemoglobin A1c. Plan Summary: OK to transfer to the floor from pulmonary standpoint. Critical Time Critical Time (minutes): 45 Level of Care: ICU -: 1. The care of a critical patient is a dynamic process. This note is a r epresentative synopsis but static in nature. The timeframe for treatments given in order is not necessarily the actual time these treatments may have been done. 2. This patient requires critical care secondary to ongoing requirements for therapy not offered or safe outside the critical care environment. Transfer to a lower level of care will result in altered life or limb morbidity and mortali ty. 3. Multidisciplinary rounds completed. 4. ABCDE bundle addressed.
[2020-07-29] MEDS ORDERED: ALBUTEROL SULFATE 0.083% NEB 2.5 MG/3 ML AMPUL NEB SCH (16:00)
--- NOTE | 2020-07-29 16:40 | PDOC PROGRESS REPORT ---
Subjective Progress Note for:: 07/29/20 Subjective:: 65-year-old female with history of COPD and "heart problems" reported by family members to have had difficulty breathing for several days. She was found semi responsive on her bath room by one of her relative after multiple failed attempt to reach her through phone. Unknown how long she has been in this state.EMS was activated. According to EMS crew the patient was lying on the floor and was initially alert and oriented but noted blue discoloration of lower extremities. She was hypoxic with o2 saturation < 65% Placed her on a non-rebreather and o2 saturation went up to 90%Patient was groaning and moving all 4 extremities symmetrically in response to painful stimuli. She was placed on BIPAP upon arrival to ED and urgently intubated. 07/28: On propofol for sedation. Off vasopressors. Arousable. Follows commands. On SIMV (PRVC) 20/400/60/8 + PSV 10. Chest x-ray shows increased interstitial markings with likely left lower lobe infiltrate. Labs show overall trend toward improvement, except for rising creatinine, 2.03. CK total 19,914-->24,294-->-->10,448. proBNP 7910-->-->1950. 07/29: Successfully extubated yesterday morning. On 4 LPM via nasal cannula. Refused to use CPAP overnight. Creatinine is now downtrending, 1.7. CK total 4046. COVID-negative. 07/29/2020-morbidly obese female admitted for hypotension, acute respiratory failure status post intubation and extubation, rhabdomyolysis downgraded from ICU to medical floor this morning. Comfortably in the bed communicating well. Family members at bedside. Chest x-ray this morning is pending. Family is requesting for physical therapy consult. Reason For Visit: ACUTE HYPERCARBIC RESPIRATORY FAILURE, CHF, Physical Exam Vital Signs: Temp Pulse Resp BP Pulse Ox 97.9 F 77 20 120/68 91 L 07/29/20 12:00 07/29/20 14:13 07/29/20 14:13 07/29/20 12:00 07/29/20 14:13 Intake & Output 07/28/20 07/29/20 07/30/20 06:59 06:59 06:59 Intake Total 2907 4230 300 Output Total 480 3000 1150 Balance 2427 1230 -850 Weight 153.4 kg 157.3 kg 157.3 kg General appearance: PRESENT: no acute distress, morbidly obese Head exam: PRESENT: atraumatic Eye exam: PRESENT: PERRLA Ear exam: PRESENT: TM's normal bilaterally Mouth exam: PRESENT: neck supple Teeth exam: PRESENT: poor dentation Neck exam: ABSENT: carotid bruit, JVD, lymphadenopathy, thyromegaly Respiratory exam: PRESENT: decreased breath sounds Cardiovascular exam: PRESENT: RRR. ABSENT: diastolic murmur, rubs, systolic murmur Pulses: PRESENT: normal dorsalis pedis pul GI/Abdominal exam: PRESENT: normal bowel sounds, soft. ABSENT: distended, guarding, mass, organolmegaly, rebound, tenderness Rectal exam: PRESENT: deferred Extremities exam: PRESENT: full ROM. ABSENT: calf tenderness, clubbing, pedal edema Neurological exam: PRESENT: alert, awake, oriented to person, oriented to place, oriented to time, oriented to situation, CN II-XII grossly intact. ABSENT: motor sensory deficit Psychiatric exam: PRESENT: appropriate affect, normal mood. ABSENT: homicidal ideation, suicidal ideation Results Laboratory Results: 07/28/20 21:54 07/29/20 03:55 07/28/20 07/29/20 21:54 03:55 WBC 18.9 H RBC 4.71 Hgb 13.4 Hct 41.3 MCV 88 MCH 28.5 MCHC 32.5 RDW 16.1 H Plt Count 130 L Seg Neutrophils % Not Reportable Sodium 132.2 L Potassium 4.4 Chloride 94 L Carbon Dioxide 29 Anion Gap 9 BUN 93 H Creatinine 1.68 H Est GFR ( Amer) 37 L Glucose 224 H Calcium 8.1 L Phosphorus 4.5 Magnesium 2.4 H 07/26/20 21:45 Sputum Gram Stain - Final 07/26/20 18:10 Blood Blood Culture (PCR) - Final 07/26/20 18:10 Blood Blood Culture - Final Staphylococcus Simulans 07/27/20 00:07 Gilbert Catheter Urine Culture - Final NO GROWTH 2 DAYS 07/26/20 07/26/20 07/26/20 18:10 18:10 18:10 Creatine Kinase 43177 H CK-MB (CK-2) Troponin I 0.478 NT-Pro-B Natriuret Pep 7910 H 07/26/20 07/27/20 07/27/20 21:31 03:30 03:30 Creatine Kinase Cancelled CK-MB (CK-2) 296.00 H Troponin I 0.411 0.490 NT-Pro-B Natriuret Pep 6640 H 07/27/20 07/27/20 07/27/20 05:08 09:09 11:55 Creatine Kinase Cancelled 37684 H CK-MB (CK-2) Troponin I 0.522 NT-Pro-B Natriuret Pep 07/27/20 07/28/20 07/28/20 21:59 05:49 05:49 Creatine Kinase 22771 H 38855 H CK-MB (CK-2) Troponin I NT-Pro-B Natriuret Pep 1950 H 07/28/20 07/28/20 07/28/20 11:23 15:08 21:54 Creatine Kinase 6208 H 4875 H CK-MB (CK-2) Troponin I 0.308 NT-Pro-B Natriuret Pep 07/29/20 03:55 Creatine Kinase 4046 H CK-MB (CK-2) Troponin I NT-Pro-B Natriuret Pep Impressions: Extremity Arterial Study 07/27/20 00:00 IMPRESSION: No occlusion visualized. However, systolic velocities and waveforms indicate at least 75% stenosis at the distal aspect of the common femoral artery or proximal aspect of the superficial femoral artery. If not contraindicated, CTA of the right lower extremity could be performed for further evaluation. Assessment and Plan - Diagnosis (1) Acute and chronic respiratory failure Qualifiers: Respiratory failure complication: hypoxia and hypercapnia Qualified Code(s): J96.21 - Acute and chronic respiratory failure with hypoxia; J96.22 - Acute and chronic respiratory failure with hypercapnia Is this a current diagnosis for this admission?: Yes Plan: * Successfully extubated yesterday. * CPAP nightly for suspected sleep apnea. * Decrease Solu-Medrol to every 12 hours dosing. * * 07/29/20-comfortably in bed communicating well on oxygen suplementation (2) Sepsis Qualifiers: Sepsis type: sepsis due to unspecified organism Sepsis acute organ dysfunction status: unspecified Qualified Code(s): A41.9 - Sepsis, unspecified organism Is this a current diagnosis for this admission?: Yes Plan: * Sepsis/septic shock, suspected to be secondary to pneumonia. * Shock physiology has resolved. * On empiric Rocephin/azithromycin/vancomycin. * * * 07/29-sputum culture is growing Corynebacterium and a blood culture is growing Staphylococcus simulans. Patient is afebrile. Presently on Rocephin, azithromycin, vancomycin. And is to discontinue vancomycin from today. (3) Rhabdomyolysis Qualifiers: Rhabdomyolysis type: non-traumatic Qualified Code(s): M62.82 - Rh abdomyolysis Is this a current diagnosis for this admission?: Yes Plan: * IV fluids: LR at 100 mL/h. * Got a dose of furosemide 40 mg IV single dose this a.m. * Stop trending CK total. * * 07/29/2020-came in with rhabdomyolysis with CK of more than 19,000. Receiving Ringer lactate 100 cc/h. CK is 4046. To recheck the CK levels tomorrow. (4) Elevated troponin Is this a current diagnosis for this admission?: Yes Plan: * 2D Echo (07/27): Probably mild LVH; no definite wall motion abnormality; LVEF greater than 65%. Grade 1/4 diastolic dysfunction. LA moderately dilated. (5) COPD exacerbation Is this a current diagnosis for this admission?: Yes Plan: * Decrease Solu-Medrol. * Continue DuoNeb. * Continue budesonide. (6) Pneumonia Qualifiers: Pneumonia type: due to unspecified organism Laterality: left Lung locatio n: lower lobe of lung Qualified Code(s): J18.9 - Pneumonia, unspecified organism Is this a current diagnosis for this admission?: Yes Plan: * Continue empiric Rocephin/azithromycin/vancomycin. * Stop vancomycin after 3 days in the absence of compelling indication for continued administration. * Stop azithromycin after 5-day course. (7) Acute kidney injury Is this a current diagnosis for this admission?: Yes Plan: * Proving, likely reflecting complications of rhabdomyolysis and prolonged hypoxia. * Renal dosing medications. * Avoid nephrotoxic drugs. 07/29/2020-acute kidney injury is improving. Latest serum creatinine is 1.64. (8) CHF (congestive heart failure), NYHA class II Qualifiers: Congestive heart failure type: unspecified Qualified Code(s): I50.9 - Heart failure, unspecified Is this a current diagnosis for this admission?: Yes Plan: 07/29/2020-echocardiogram indicates EF more than 60%, grade 1/4 diastolic dysfunction. (9) Acute metabolic encephalopathy Is this a current diagnosis for this admission?: Yes Plan: 07/29/2020-patient admitted with acute metabolic encephalopathy multifactorial. Resolved. - Time Anticipated Discharge Disposition: Long Term Facility Anticipated Discharge Timeframe: within 72 hours
--- NOTE | 2020-07-29 17:08 | RADIOLOGY REPORT (SQ) ---
EXAM DESCRIPTION: CHEST 2 VIEWS IMAGES COMPLETED DATE/TIME: 07/29/2020 3:29 pm REASON FOR STUDY: resp failure s/p extubation COMPARISON: 07/27/2020 EXAM PARAMETERS: NUMBER OF VIEWS: two views TECHNIQUE: Digital Frontal and Lateral radiographic views of the chest acquired. RADIATION DOSE: NA LIMITATIONS: none FINDINGS: LUNGS AND PLEURA: No pulmonary edema. Ill-defined opacification in the left base. MEDIASTINUM AND HILAR STRUCTURES: No masses or contour abnormalities. HEART AND VASCULAR STRUCTURES: Heart size is borderline. BONES: No acute findings. HARDWARE: None in the chest. OTHER: No other significant finding. IMPRESSION: Borderline heart size. No pulmonary edema. Cannot exclude airspace disease in the left base, pneumonia versus atelectasis. TECHNICAL DOCUMENTATION: JOB ID: [id number] 2010 [employer]- All Rights Reserved Reading location - IP/workstation name: [email or web address]
[2020-07-29] MEDS ORDERED: METHYLPREDNISOLONE INJ 125 MG/2 ML SDV IV SCH (22:00)
[2020-07-30] MEDS: IPRATROPIUM/ALBUTEROL 0.5-2.5 MG/3 ML AMPUL NEB SCH ×4 (01:49→20:42)
[2020-07-30 05:58] LABS: HEMATOCRIT 39.5 % (36.0-47.0); HEMOGLOBIN 12.8 g/dL (12.0-15.5); MEAN CORPUSCULAR HEMOGLOBIN 28.5 pg (27.0-33.4); MEAN CORPUSCULAR HGB CONC 32.5 g/dL (32.0-36.0); MEAN CORPUSCULAR VOLUME 88 fl (80-97); PLATELET COUNT 124 10^3/uL (150-450); RED CELL DISTRIBUTION WIDTH 16.1 % (11.5-14.0); WHITE BLOOD COUNT 14.4 10^3/uL (4.0-10.5)
[2020-07-30 06:16] LABS: ALBUMIN 2.7 g/dL (3.5-5.0); ALKALINE PHOSPHATASE 46 U/L (38-126); ANION GAP 9 (5-19); ASPARTATE AMINO TRANSFERASE 106 U/L (14-36); BILIRUBIN,DIRECT 0.4 mg/dL (0.0-0.4); BILIRUBIN,TOTAL 0.4 mg/dL (0.2-1.3); BLOOD UREA NITROGEN 75 mg/dL (7-20); CALCIUM 8.1 mg/dL (8.4-10.2); CARBON DIOXIDE 31 mmol/L (22-30); CHLORIDE 94 mmol/L (98-107); GLUCOSE 258 mg/dL (75-110); POTASSIUM 4.7 mmol/L (3.6-5.0); TOTAL PROTEIN 5.1 g/dL (6.3-8.2)
[2020-07-30 06:45] LABS: ABSOLUTE MONOCYTES # (MANUAL) 1.2 10^3/uL (0.1-1.4); BASOPHILS % (MANUAL) 0 % (0-2); EOSINOPHILS % (MANUAL) 0 % (0-6); LYMPHOCYTES % (MANUAL) 0 % (13-45); MONOCYTES % (MANUAL) 8 % (3-13); SEGMENTED NEUTROPHILS % (MAN) 92 % (42-78); TOTAL CELLS COUNTED 100
[2020-07-30 06:46] LABS: ANISOCYTOSIS 1+; PLATELET COMMENT DECREASED; TOXIC VACUOLATION PRESENT
[2020-07-30] MEDS ORDERED: RINGERS SOLUTION,LACTATED 1,000 ML IV PRN (08:13)
[2020-07-30] MEDS: BUDESONIDE NEB 0.25 MG/2 ML AMPUL NEB SCH ×2 (08:44→20:42)
[2020-07-30] MEDS: CEFTRIAXONE 1 GM/D5W RTU 1 GM/50 ML RTUPB IV SCH (09:07)
[2020-07-30] MEDS: PANTOPRAZOLE SODIUM 40 MG VIAL IV SCH ×2 (09:07→21:21)
[2020-07-30] MEDS: DOCUSATE SODIUM 100 MG CAPSULE PO SCH ×2 (09:07→17:11)
[2020-07-30] MEDS: NICOTINE 7 MG/24 HR PATCH.TD24 TD SCH (09:08)
[2020-07-30] MEDS: METHYLPREDNISOLONE INJ 40 MG/1 ML SDV IV SCH ×2 (09:08→21:21)
[2020-07-30] MEDS ORDERED: METHYLPREDNISOLONE INJ 125 MG/2 ML SDV IV SCH (10:00)
--- NOTE | 2020-07-30 10:32 | PDOC PROGRESS REPORT ---
Subjective Progress Note for:: 07/30/20 Subjective:: 65-year-old female with history of COPD and "heart problems" reported by family members to have had difficulty breathing for several days. She was found semi responsive on her bath room by one of her relative after multiple failed attempt to reach her through phone. Unknown how long she has been in this state.EMS was activated. According to EMS crew the patient was lying on the floor and was initially alert and oriented but noted blue discoloration of lower extremities. She was hypoxic with o2 saturation < 65% Placed her on a non-rebreather and o2 saturation went up to 90%Patient was groaning and moving all 4 extremities symmetrically in response to painful stimuli. She was placed on BIPAP upon arrival to ED and urgently intubated. 07/28: On propofol for sedation. Off vasopressors. Arousable. Follows commands. On SIMV (PRVC) 20/400/60/8 + PSV 10. Chest x-ray shows increased interstitial markings with likely left lower lobe infiltrate. Labs show overall trend toward improvement, except for rising creatinine, 2.03. CK total 19,914-->24,294-->-->10,448. proBNP 7910-->-->1950. 07/29: Successfully extubated yesterday morning. On 4 LPM via nasal cannula. Refused to use CPAP overnight. Creatinine is now downtrending, 1.7. CK total 4046. COVID-negative. 07/29/2020-morbidly obese female admitted for hypotension, acute respiratory failure status post intubation and extubation, rhabdomyolysis downgraded from ICU to medical floor this morning. Comfortably in the bed communicating well. Family members at bedside. Chest x-ray this morning is pending. Family is requesting for physical therapy consult. 07/30/2020-morbidly obese female probably has sleep apnea requiring CPAP admitted with respiratory failure status post intubation and extubation. Sepsis is also resolving. Chest x-ray yesterday did not indicate of any pneumonia. Physical therapy consult was requested. Patient is reluctant to go to rehab facility. Reason For Visit: ACUTE HYPERCARBIC RESPIRATORY FAILURE, CHF, Physical Exam Vital Signs: Temp Pulse Resp BP Pulse Ox 98.3 F 85 20 137/79 H 93 07/30/20 08:22 07/30/20 08:44 07/30/20 08:44 07/30/20 07:10 07/30/20 08:44 Intake & Output 07/29/20 07/30/20 07/31/20 06:59 06:59 06:59 Intake Total 4230 1190 50 Output Total 3000 2650 Balance 1230 -1460 50 Weight 157.3 kg 158.6 kg General appearance: PRESENT: no acute distress, morbidly obese Head exam: PRESENT: atraumatic Eye exam: PRESENT: PERRLA Mouth exam: PRESENT: moist, tongue midline Teeth exam: PRESENT: poor dentation Neck exam: ABSENT: carotid bruit, JVD, lymphadenopathy, thyromegaly Respiratory exam: PRESENT: decreased breath sounds Cardiovascular exam: PRESENT: RRR. ABSENT: diastolic murmur, rubs, systolic murmur Pulses: PRESENT: normal dorsalis pedis pul GI/Abdominal exam: PRESENT: normal bowel sounds, soft. ABSENT: distended, guarding, mass, organolmegaly, rebound, tenderness Rectal exam: PRESENT: deferred Extremities exam: PRESENT: full ROM. ABSENT: calf tenderness, clubbing, pedal edema Neurological exam: PRESENT: alert, awake, oriented to person, oriented to place, oriented to time, oriented to situation, CN II-XII grossly intact. ABSENT: motor sensory deficit Psychiatric exam: PRESENT: appropriate affect, normal mood. ABSENT: homicidal ideation, suicidal ideation Results Laboratory Results: 07/30/20 05:42 07/30/20 05:42 07/30/20 07/30/20 05:42 05:42 WBC 14.4 H RBC 4.50 Hgb 12.8 Hct 39.5 MCV 88 MCH 28.5 MCHC 32.5 RDW 16.1 H Plt Count 124 L Seg Neutrophils % Not Reportable Sodium 133.7 L Potassium 4.7 Chloride 94 L Carbon Dioxide 31 H Anion Gap 9 BUN 75 H Creatinine 1.16 Est GFR ( Amer) 57 L Glucose 258 H Calcium 8.1 L Magnesium 2.1 Total Bilirubin 0.4 AST 106 H Alkaline Phosphatase 46 Total Protein 5.1 L Albumin 2.7 L 07/26/20 21:45 Sputum Gram Stain - Final 07/26/20 21:45 Sputum Sputum Culture - Final Corynebacterium Striatum Greatly Reduced Normal Cleopatra 07/26/20 18:10 Blood Blood Culture (PCR) - Final 07/26/20 18:10 Blood Blood Culture - Final Staphylococcus Simulans 07/27/20 00:07 Gilbert Catheter Urine Culture - Final NO GROWTH 2 DAYS 07/26/20 07/26/20 07/26/20 18:10 18:10 18:10 Creatine Kinase 96337 H CK-MB (CK-2) Troponin I 0.478 NT-Pro-B Natriuret Pep 7910 H 07/26/20 07/27/20 07/27/20 21:31 03:30 03:30 Creatine Kinase Cancelled CK-MB (CK-2) 296.00 H Troponin I 0.411 0.490 NT-Pro-B Natriuret Pep 6640 H 07/27/20 07/27/20 07/27/20 05:08 09:09 11:55 Creatine Kinase Cancelled 98631 H CK-MB (CK-2) Troponin I 0.522 NT-Pro-B Natriuret Pep 07/27/20 07/28/20 07/28/20 21:59 05:49 05:49 Creatine Kinase 46652 H 85147 H CK-MB (CK-2) Troponin I NT-Pro-B Natriuret Pep 1950 H 07/28/20 07/28/20 07/28/20 11:23 15:08 21:54 Creatine Kinase 6208 H 4875 H CK-MB (CK-2) Troponin I 0.308 NT-Pro-B Natriuret Pep 07/29/20 03:55 Creatine Kinase 4046 H CK-MB (CK-2) Troponin I NT-Pro-B Natriuret Pep Impressions: Extremity Arterial Study 07/27/20 00:00 IMPRESSION: No occlusion visualized. However, systolic velocities and waveforms indicate at least 75% stenosis at the distal aspect of the common femoral artery or proximal aspect of the superficial femoral artery. If not contraindicated, CTA of the right lower extremity could be performed for further evaluation. Chest X-Ray 07/29/20 00:00 IMPRESSION: Borderline heart size. No pulmonary edema. Cannot exclude airspace disease in the left base, pneumonia versus atelectasis. Assessment and Plan - Diagnosis (1) Acute and chronic respiratory failure Qualifiers: Respiratory failure complication: hypoxia and hypercapnia Qualified Code(s): J96.21 - Acute and chronic respiratory failure with hypoxia; J96.22 - Acute and chronic respiratory failure with hypercapnia Is this a current diagnosis for this admission?: Yes Plan: * Successfully extubated yesterday. * CPAP nightly for suspected sleep apnea. * Decrease Solu-Medrol to every 12 hours dosing. * * 07/29/20-comfortably in bed communicating well on oxygen suplementation * * 07/30/2020-patient admitted with acute on chronic respiratory failure status post intubation and extubation. Plan is to decrease IV Solu-Medrol to 40 mg every 12 hours. To continue IV antibiotic therapy at this time. (2) Sepsis Qualifiers: Sepsis type: sepsis due to unspecified organism Sepsis acute organ dysfunction status: unspecified Qualified Code(s): A41.9 - Sepsis, unspecified organism Is this a current diagnosis for this admission?: Yes Plan: * Sepsis/septic shock, suspected to be secondary to pneumonia. * Shock physiology has resolved. * On empiric Rocephin/azithromycin/vancomycin. * * * 07/29-sputum culture is growing Corynebacterium and a blood culture is growing Staphylococcus simulans. Patient is afebrile. Presently on Rocephin, azithromycin, vancomycin. And is to discontinue vancomycin from today. * * 07/30/2020-sputum culture is growing Corynebacterium, blood culture is growing Staphylococcus simulans. Afebrile. Blood pressures are stable. Latest x- rays negative for pneumonia. Plan is to continue the antibiotic therapy for at least 2 more days. (3) Rhabdomyolysis Qualifiers: Rhabdomyolysis type: non-traumatic Qualified Code(s): M62.82 - Rhabdomyolysis Is this a current diagnosis for this admission?: Yes Plan: * IV fluids: LR at 100 mL/h. * Got a dose of furosemide 40 mg IV single dose this a.m. * Stop trending CK total. * * 07/29/2020-came in with rhabdomyolysis with CK of more than 19,000. Receiving Ringer lactate 100 cc/h. CK is 4046. To recheck the CK levels tomorrow. * * 07/30/2020-patient admitted with rhabdomyolysis improving. Latest CKs 4046. CK levels are pending. (4) Elevated troponin Is this a current diagnosis for this admission?: Yes Plan: * 2D Echo (07/27): Probably mild LVH; no definite wall motion abnormality; LVEF greater than 65%. Grade 1/4 diastolic dysfunction. LA moderately dilated. (5) COPD exacerbation Is this a current diagnosis for this admission?: Yes Plan: * Decrease Solu-Medrol. * Continue DuoNeb. * Continue budesonide. 07/30/2020-patient admitted COPD exacerbation. IV Solu-Medrol to 40 mg every 12 hours, to continue DuoNeb nebulizations, to continue budesonide. Pulse ox is 95% 4 L this morning. (6) Pneumonia Qualifiers: Pneumonia type: due to unspecified organism Laterality: left Lung location: lower lobe of lung Qualified Code(s): J18.9 - Pneumonia, unspecified organism Is this a current diagnosis for this admission?: Yes Plan: * Continue empiric Rocephin/azithromycin/vancomycin. * Stop vancomycin after 3 days in the absence of compelling indication for continued administration. * Stop azithromycin after 5-day course. 07/30/2020-chest x-ray done yesterday shows improvement in pneumonia. Plan is to continue IV Rocephin and Zithromax at this time. (7) Acute kidney injury Is this a current diagnosis for this admission?: Yes Plan: * Proving, likely reflecting complications of rhabdomyolysis and prolonged hypoxia. * Renal dosing medications. * Avoid nephrotoxic drugs. 07/29/2020-acute kidney injury is improving. Latest serum creatinine is 1.64. 07/30/2020-creatinine today is 1.16. Acute kidney injury resolved. (8) CHF (congestive heart failure), NYHA class II Qualifiers: Congestive heart failure type: unspecified Qualified Code(s): I50.9 - Heart failure, unspecified Is this a current diagnosis for this admission?: Yes Plan: 07/29/2020-echocardiogram indicates EF more than 60%, grade 1/4 diastolic dysfunction. (9) Acute metabolic encephalopathy Is this a current diagnosis for this admission?: Yes Plan: 07/29/2020-patient admitted with acute metabolic encephalopathy multifactorial. Resolved. (10) Morbid obesity Is this a current diagnosis for this admission?: No Plan: 07/30/2020-patient's BMI is more than 54. Diet exercise weight loss lifestyle modifications discussed with the patient. (11) Obesity hypoventilation syndrome Is this a current diagnosis for this admission?: No Plan: 07/30/2020-patient BMI is more than 54. Patient need outpatient sleep study. Patient may need to be on CPAP at home. - Time Anticipated Discharge Disposition: Home, Self Care Anticipated Discharge Timeframe: within 72 hours
[2020-07-30] MEDS: AZITHROMYCIN 500 MG in DEXTROSE 5%-WATER 250 ML IV SCH (11:40)
[2020-07-31] MEDS: IPRATROPIUM/ALBUTEROL 0.5-2.5 MG/3 ML AMPUL NEB SCH ×4 (02:09→19:31)
[2020-07-31 07:10] LABS: HEMATOCRIT 41.2 % (36.0-47.0); HEMOGLOBIN 13.3 g/dL (12.0-15.5); MEAN CORPUSCULAR HEMOGLOBIN 28.4 pg (27.0-33.4); MEAN CORPUSCULAR HGB CONC 32.4 g/dL (32.0-36.0); MEAN CORPUSCULAR VOLUME 88 fl (80-97); PLATELET COUNT 138 10^3/uL (150-450); RED BLOOD COUNT 4.69 10^6/uL (3.72-5.28); RED CELL DISTRIBUTION WIDTH 15.8 % (11.5-14.0)
[2020-07-31 07:25] LABS: ALBUMIN 2.7 g/dL (3.5-5.0); ALKALINE PHOSPHATASE 47 U/L (38-126); ASPARTATE AMINO TRANSFERASE 90 U/L (14-36); BILIRUBIN,DIRECT 0.4 mg/dL (0.0-0.4); BILIRUBIN,TOTAL 0.5 mg/dL (0.2-1.3); BLOOD UREA NITROGEN 60 mg/dL (7-20); CALCIUM 8.5 mg/dL (8.4-10.2); CARBON DIOXIDE 37 mmol/L (22-30); CHLORIDE 96 mmol/L (98-107); GLUCOSE 172 mg/dL (75-110); TOTAL PROTEIN 5.2 g/dL (6.3-8.2)
[2020-07-31 07:29] LABS: ANION GAP 3 (5-19)
[2020-07-31 08:00] LABS: ABSOLUTE LYMPHOCYTES# (MANUAL) 0.1 10^3/uL (0.5-4.7); ABSOLUTE MONOCYTES # (MANUAL) 1.1 10^3/uL (0.1-1.4); BASOPHILS % (MANUAL) 0 % (0-2); EOSINOPHILS % (MANUAL) 0 % (0-6); LYMPHOCYTES % (MANUAL) 1 % (13-45); MONOCYTES % (MANUAL) 10 % (3-13); SEGMENTED NEUTROPHILS % (MAN) 89 % (42-78); TOTAL CELLS COUNTED 100
[2020-07-31 08:01] LABS: PLATELET COMMENT DECREASED; RBC MORPHOLOGY COMMENT NORMO-CYTIC/CHROMIC
[2020-07-31] MEDS: BUDESONIDE NEB 0.25 MG/2 ML AMPUL NEB SCH ×2 (08:35→19:31)
[2020-07-31] MEDS: DOCUSATE SODIUM 100 MG CAPSULE PO SCH ×2 (10:01→17:05)
[2020-07-31] MEDS: METHYLPREDNISOLONE INJ 40 MG/1 ML SDV IV SCH ×2 (10:09→21:47)
[2020-07-31] MEDS: PANTOPRAZOLE SODIUM 40 MG VIAL IV SCH ×2 (10:09→21:47)
[2020-07-31] MEDS: NICOTINE 7 MG/24 HR PATCH.TD24 TD SCH (10:22)
--- NOTE | 2020-07-31 10:23 | PDOC PROGRESS REPORT ---
Subjective Progress Note for:: 07/31/20 Subjective:: 65-year-old female with history of COPD and "heart problems" reported by family members to have had difficulty breathing for several days. She was found semi responsive on her bath room by one of her relative after multiple failed attempt to reach her through phone. Unknown how long she has been in this state.EMS was activated. According to EMS crew the patient was lying on the floor and was initially alert and oriented but noted blue discoloration of lower extremities. She was hypoxic with o2 saturation < 65% Placed her on a non-rebreather and o2 saturation went up to 90%Patient was groaning and moving all 4 extremities symmetrically in response to painful stimuli. She was placed on BIPAP upon arrival to ED and urgently intubated. 07/28: On propofol for sedation. Off vasopressors. Arousable. Follows commands. On SIMV (PRVC) 20/400/60/8 + PSV 10. Chest x-ray shows increased interstitial markings with likely left lower lobe infiltrate. Labs show overall trend toward improvement, except for rising creatinine, 2.03. CK total 19,914-->24,294-->-->10,448. proBNP 7910-->-->1950. 07/29: Successfully extubated yesterday morning. On 4 LPM via nasal cannula. Refused to use CPAP overnight. Creatinine is now downtrending, 1.7. CK total 4046. COVID-negative. 07/29/2020-morbidly obese female admitted for hypotension, acute respiratory failure status post intubation and extubation, rhabdomyolysis downgraded from ICU to medical floor this morning. Comfortably in the bed communicating well. Family members at bedside. Chest x-ray this morning is pending. Family is requesting for physical therapy consult. 07/30/2020-morbidly obese female probably has sleep apnea requiring CPAP admitted with respiratory failure status post intubation and extubation. Sepsis is also resolving. Chest x-ray yesterday did not indicate of any pneumonia. Physical therapy consult was requested. Patient is reluctant to go to rehab facility. 07/31/2020-no acute events in the last 24 hours. Afebrile. Unable to participate in physical therapy yesterday. Probably patient need short-term rehab. Pulse ox is 96% on 4 L. Reason For Visit: ACUTE HYPERCARBIC RESPIRATORY FAILURE, CHF, Physical Exam Vital Signs: Temp Pulse Resp BP Pulse Ox 98.0 F 76 18 129/78 H 96 07/31/20 07:55 07/31/20 08:35 07/31/20 08:35 07/31/20 07:55 07/31/20 08:35 Intake & Output 07/30/20 07/31/20 08/01/20 06:59 06:59 06:59 Intake Total 1190 1554 Output Total 2650 8615 Balance -1460 -1171 Weight 158.6 kg 158 kg General appearance: PRESENT: no acute distress, cooperative, morbidly obese Head exam: PRESENT: atraumatic Eye exam: PRESENT: PERRLA Mouth exam: PRESENT: moist, tongue midline Teeth exam: PRESENT: poor dentation Neck exam: ABSENT: carotid bruit, JVD, lymphadenopathy, thyromegaly Respiratory exam: PRESENT: decreased breath sounds Cardiovascular exam: PRESENT: RRR. ABSENT: diastolic murmur, rubs, systolic murmur GI/Abdominal exam: PRESENT: normal bowel sounds, soft. ABSENT: distended, guarding, mass, organolmegaly, rebound, tenderness Rectal exam: PRESENT: deferred Extremities exam: PRESENT: full ROM. ABSENT: calf tenderness, clubbing, pedal edema Neurological exam: PRESENT: alert, awake, oriented to person, oriented to place, oriented to time, oriented to situation, CN II-XII grossly intact. ABSENT: motor sensory deficit Psychiatric exam: PRESENT: appropriate affect, normal mood. ABSENT: homicidal ideation, suicidal ideation Results Laboratory Results: 07/31/20 06:06 07/31/20 06:06 07/31/20 07/31/20 06:06 06:06 WBC 11.0 H RBC 4.69 Hgb 13.3 Hct 41.2 MCV 88 MCH 28.4 MCHC 32.4 RDW 15.8 H Plt Count 138 L Seg Neutrophils % Not Reportable Sodium 136.2 L Potassium 5.0 Chloride 96 L Carbon Dioxide 37 H Anion Gap 3 L BUN 60 H Creatinine 0.86 Est GFR ( Amer) > 60 Glucose 172 H Calcium 8.5 Total Bilirubin 0.5 AST 90 H Alkaline Phosphatase 47 Total Protein 5.2 L Albumin 2.7 L 07/26/20 21:45 Sputum Gram Stain - Final 10/06/20 21:45 Sputum Sputum Culture - Final Corynebacterium Striatum Greatly Reduced Normal Cleopatra 07/26/20 07/26/20 07/26/20 18:10 18:10 18:10 Creatine Kinase 37431 H CK-MB (CK-2) Troponin I 0.478 NT-Pro-B Natriuret Pep 7910 H 07/26/20 07/27/20 07/27/20 21:31 03:30 03:30 Creatine Kinase Cancelled CK-MB (CK-2) 296.00 H Troponin I 0.411 0.490 NT-Pro-B Natriuret Pep 6640 H 07/27/20 07/27/20 07/27/20 05:08 09:09 11:55 Creatine Kinase Cancelled 70288 H CK-MB (CK-2) Troponin I 0.522 NT-Pro-B Natriuret Pep 07/27/20 07/28/20 07/28/20 21:59 05:49 05:49 Creatine Kinase 70532 H 73878 H CK-MB (CK-2) Troponin I NT-Pro-B Natriuret Pep 1950 H 07/28/20 07/28/20 07/28/20 11:23 15:08 21:54 Creatine Kinase 6208 H 4875 H CK-MB (CK-2) Troponin I 0.308 NT-Pro-B Natriuret Pep 07/29/20 03:55 Creatine Kinase 4046 H CK-MB (CK-2) Troponin I NT-Pro-B Natriuret Pep Impressions: Extremity Arterial Study 07/27/20 00:00 IMPRESSION: No occlusion visualized. However, systolic velocities and waveforms indicate at least 75% stenosis at the distal aspect of the common femoral artery or proximal aspect of the superficial femoral artery. If not contraindicated, CTA of the right lower extremity could be performed for further evaluation. Chest X-Ray 07/29/20 00:00 IMPRESSION: Borderline heart size. No pulmonary edema. Cannot exclude airspace disease in the left base, pneumonia versus atelectasis. Assessment and Plan - Diagnosis (1) Acute and chronic respiratory failure Qualifiers: Respiratory failure complication: hypoxia and hypercapnia Qualified Code(s): J96.21 - Acute and chronic respiratory failure with hypoxia; J96.22 - Acute and chronic respiratory failure with hypercapnia Is this a current diagnosis for this admission?: Yes Plan: * Successfully extubated yesterday. * CPAP nightly for suspected sleep apnea. * Decrease Solu-Medrol to every 12 hours dosing. * * 07/29/20-comfortably in bed communicating well on oxygen suplementation * * 07/30/2020-patient admitted with acute on chronic respiratory failure status post intubation and extubation. Plan is to decrease IV Solu-Medrol to 40 mg every 12 hours. To continue IV antibiotic therapy at this time. * * * 07/31/[id number]-old female admitted to ICU for acute on chronic respiratory failure downgraded to medical floor yesterday. Doing well. Pulse ox 96% on 4 L. (2) Sepsis Qualifiers: Sepsis type: sepsis due to unspecified organism Sepsis acute organ dysfunction status: unspecified Qualified Code(s): A41.9 - Sepsis, unspecified organism Is this a current diagnosis for this admission?: Yes Plan: * Sepsis/septic shock, suspected to be secondary to pneumonia. * Shock physiology has resolved. * On empiric Rocephin/azithromycin/vancomycin. * * * 07/29-sputum culture is growing Corynebacterium and a blood culture is growing Staphylococcus simulans. Patient is afebrile. Presently on Rocephin, azithromycin, vancomycin. And is to discontinue vancomycin from today. * * 07/30/2020-sputum culture is growing Corynebacterium, blood culture is growing Staphylococcus simulans. Afebrile. Blood pressures are stable. Latest x- rays negative for pneumonia. Plan is to continue the antibiotic therapy for at least 2 more days. * * 07/31/2020-patient admitted with sepsis/septic shock secondary to pneumonia. Blood cultures are negative. Afebrile. Blood pressure stable. Plan is to discontinue antibiotics from today. (3) Rhabdomyolysis Qualifiers: Rhabdomyolysis type: non-traumatic Qualified Code(s): M62.82 - Rhabdomyolysis Is this a current diagnosis for this admission?: Yes Plan: * IV fluids: LR at 100 mL/h. * Got a dose of furosemide 40 mg IV single dose this a.m. * Stop trending CK total. * * 07/29/2020-came in with rhabdomyolysis with CK of more than 19,000. Receiving Ringer lactate 100 cc/h. CK is 4046. To recheck the CK levels tomorrow. * * 07/30/2020-patient admitted with rhabdomyolysis improving. Latest CKs 4046. CK levels are pending. (4) Elevated troponin Is this a current diagnosis for this admission?: Yes Plan: * 2D Echo (07/27): Probably mild LVH; no definite wall motion abnormality; LVEF greater than 65%. Grade 1/4 diastolic dysfunction. LA moderately dilated. (5) COPD exacerbation Is this a current diagnosis for this admission?: Yes Plan: * Decrease Solu-Medrol. * Continue DuoNeb. * Continue budesonide. 07/30/2020-patient admitted COPD exacerbation. IV Solu-Medrol to 40 mg every 12 hours, to continue DuoNeb nebulizations, to continue budesonide. Pulse ox is 95% 4 L this morning. (6) Pneumonia Qualifiers: Pneumonia type: due to unspecified organism Laterality: left Lung location: lower lobe of lung Qualified Code(s): J18.9 - Pneumonia, unspecified organism Is this a current diagnosis for this admission?: Yes Plan: * Continue empiric Rocephin/azithromycin/vancomycin. * Stop vancomycin after 3 days in the absence of compelling indication for continued administration. * Stop azithromycin after 5-day course. 07/30/2020-chest x-ray done yesterday shows improvement in pneumonia. Plan is to continue IV Rocephin and Zithromax at this time. (7) Acute kidney injury Is this a current diagnosis for this admission?: Yes Plan: * Proving, likely reflecting complications of rhabdomyolysis and prolonged hypoxia. * Renal dosing medications. * Avoid nephrotoxic drugs. 07/29/2020-acute kidney injury is improving. Latest serum creatinine is 1.64. 07/30/2020-creatinine today is 1.16. Acute kidney injury resolved. 07/31/2020-serum creatinine today 0.86. Acute kidney injury is resolved. (8) CHF (congestive heart failure), NYHA class II Qualifiers: Congestive heart failure type: unspecified Qualified Code(s): I50.9 - Heart failure, unspecified Is this a current diagnosis for this admission?: Yes Plan: 07/29/2020-echocardiogram indicates EF more than 60%, grade 1/4 diastolic dysfunction. (9) Acute metabolic encephalopathy Is this a current diagnosis for this admission?: Yes Plan: 07/29/2020-patient admitted with acute metabolic encephalopathy multifactorial. Resolved. (10) Morbid obesity Is this a current diagnosis for this admission?: No Plan: 07/30/2020-patient's BMI is more than 54. Diet exercise weight loss lifestyle modifications discussed with the patient. (11) Obesity hypoventilation syndrome Is this a current diagnosis for this admission?: No Plan: 07/30/2020-patient BMI is more than 54. Patient need outpatient sleep study. Patient may need to be on CPAP at home. - Time Anticipated Discharge Disposition: Home, Self Care Anticipated Discharge Timeframe: within 72 hours
[2020-07-31] MEDS ORDERED: INFLUENZA QUAD (6MOS+) 2020-21 VAC 0.5 ML SYR IM ONE (16:15)
[2020-08-01] MEDS: IPRATROPIUM/ALBUTEROL 0.5-2.5 MG/3 ML AMPUL NEB SCH ×4 (02:19→19:48)
[2020-08-01 07:10] LABS: HEMOGLOBIN 12.6 g/dL (12.0-15.5); MEAN CORPUSCULAR HEMOGLOBIN 28.7 pg (27.0-33.4); MEAN CORPUSCULAR HGB CONC 32.4 g/dL (32.0-36.0); MEAN CORPUSCULAR VOLUME 89 fl (80-97); PLATELET COUNT 139 10^3/uL (150-450); WHITE BLOOD COUNT 10.4 10^3/uL (4.0-10.5)
[2020-08-01 07:27] LABS: ALBUMIN 2.6 g/dL (3.5-5.0); ALKALINE PHOSPHATASE 43 U/L (38-126); ASPARTATE AMINO TRANSFERASE 73 U/L (14-36); BLOOD UREA NITROGEN 45 mg/dL (7-20); CALCIUM 8.4 mg/dL (8.4-10.2); GLUCOSE 212 mg/dL (75-110); POTASSIUM 5.1 mmol/L (3.6-5.0)
[2020-08-01 07:28] LABS: BILIRUBIN,DIRECT 0.4 mg/dL (0.0-0.4); BILIRUBIN,TOTAL 0.6 mg/dL (0.2-1.3); TOTAL PROTEIN 4.9 g/dL (6.3-8.2)
[2020-08-01 07:32] LABS: CARBON DIOXIDE 37 mmol/L (22-30); CHLORIDE 96 mmol/L (98-107)
[2020-08-01 08:21] LABS: ANION GAP 3 (5-19)
[2020-08-01 08:30] LABS: ABSOLUTE LYMPHOCYTES# (MANUAL) 0.6 10^3/uL (0.5-4.7); ABSOLUTE MONOCYTES # (MANUAL) 0.6 10^3/uL (0.1-1.4); BASOPHILS % (MANUAL) 0 % (0-2); EOSINOPHILS % (MANUAL) 0 % (0-6); LYMPHOCYTES % (MANUAL) 5 % (13-45); MONOCYTES % (MANUAL) 6 % (3-13); SEGMENTED NEUTROPHILS % (MAN) 88 % (42-78); TOTAL CELLS COUNTED 100
[2020-08-01 08:34] LABS: ANISOCYTOSIS 1+
[2020-08-01 08:35] LABS: PLATELET COMMENT DECREASED; PLATELET LARGE PRESENT; RBC MORPHOLOGY COMMENT NORMO-CYTIC/CHROMIC
[2020-08-01] MEDS: BUDESONIDE NEB 0.25 MG/2 ML AMPUL NEB SCH ×2 (08:57→19:48)
--- NOTE | 2020-08-01 10:39 | PDOC PROGRESS REPORT ---
Subjective Progress Note for:: 08/01/20 Subjective:: 65-year-old female with history of COPD and "heart problems" reported by family members to have had difficulty breathing for several days. She was found semi responsive on her bath room by one of her relative after multiple failed attempt to reach her through phone. Unknown how long she has been in this state.EMS was activated. According to EMS crew the patient was lying on the floor and was initially alert and oriented but noted blue discoloration of lower extremities. She was hypoxic with o2 saturation < 65% Placed her on a non-rebreather and o2 saturation went up to 90%Patient was groaning and moving all 4 extremities symmetrically in response to painful stimuli. She was placed on BIPAP upon arrival to ED and urgently intubated. 07/28: On propofol for sedation. Off vasopressors. Arousable. Follows commands. On SIMV (PRVC) 20/400/60/8 + PSV 10. Chest x-ray shows increased interstitial markings with likely left lower lobe infiltrate. Labs show overall trend toward improvement, except for rising creatinine, 2.03. CK total 19,914-->24,294-->-->10,448. proBNP 7910-->-->1950. 07/29: Successfully extubated yesterday morning. On 4 LPM via nasal cannula. Refused to use CPAP overnight. Creatinine is now downtrending, 1.7. CK total 4046. COVID-negative. 07/29/2020-morbidly obese female admitted for hypotension, acute respiratory failure status post intubation and extubation, rhabdomyolysis downgraded from ICU to medical floor this morning. Comfortably in the bed communicating well. Family members at bedside. Chest x-ray this morning is pending. Family is requesting for physical therapy consult. 07/30/2020-morbidly obese female probably has sleep apnea requiring CPAP admitted with respiratory failure status post intubation and extubation. Sepsis is also resolving. Chest x-ray yesterday did not indicate of any pneumonia. Physical therapy consult was requested. Patient is reluctant to go to rehab facility. 07/31/2020-no acute events in the last 24 hours. Afebrile. Unable to participate in physical therapy yesterday. Probably patient need short-term rehab. Pulse ox is 96% on 4 L. 08/01/20-physical therapy is working with the patient. Patient needed assistance from 3 people to ambulate. blood bank business manager consult was requested patient may be able to go home tomorrow with home physical therapy. Other option will be placement in assisted living. Reason For Visit: ACUTE HYPERCARBIC RESPIRATORY FAILURE, CHF, Physical Exam Vital Signs: Temp Pulse Resp BP Pulse Ox 98.4 F 78 18 113/48 L 97 08/01/20 08:32 08/01/20 08:31 08/01/20 08:31 08/01/20 08:31 08/01/20 08:31 Intake & Output 07/31/20 08/01/20 08/02/20 06:59 06:59 06:59 Intake Total 1554 1802 Output Total 2725 1875 Balance -1171 -73 Weight 158 kg 161.3 kg General appearance: PRESENT: no acute distress, cooperative, morbidly obese Head exam: PRESENT: atraumatic Eye exam: PRESENT: PERRLA Mouth exam: PRESENT: moist, tongue midline Neck exam: ABSENT: carotid bruit, JVD, lymphadenopathy, thyromegaly Respiratory exam: PRESENT: decreased breath sounds Cardiovascular exam: PRESENT: RRR. ABSENT: diastolic murmur, rubs, systolic murmur GI/Abdominal exam: PRESENT: normal bowel sounds, soft. ABSENT: distended, guarding, mass, organolmegaly, rebound, tenderness Rectal exam: PRESENT: deferred Extremities exam: PRESENT: full ROM. ABSENT: calf tenderness, clubbing, pedal edema Neurological exam: PRESENT: alert Psychiatric exam: PRESENT: appropriate affect, normal mood. ABSENT: homicidal ideation, suicidal ideation Results Laboratory Results: 08/01/20 05:39 08/01/20 05:39 08/01/20 08/01/20 05:39 05:39 WBC 10.4 RBC 4.40 Hgb 12.6 Hct 39.0 MCV 89 MCH 28.7 MCHC 32.4 RDW 16.0 H Plt Count 139 L Seg Neutrophils % Not Reportable Sodium 136.2 L Potassium 5.1 H Chloride 96 L Carbon Dioxide 37 H Anion Gap 3 L BUN 45 H Creatinine 0.84 Est GFR ( Amer) > 60 Glucose 212 H Calcium 8.4 Magnesium 2.0 Total Bilirubin 0.6 AST 73 H Alkaline Phosphatase 43 Total Protein 4.9 L Albumin 2.6 L 07/26/20 19:15 Blood Blood Culture - Final NO GROWTH IN 5 DAYS 07/26/20 07/26/20 07/26/20 18:10 18:10 18:10 Creatine Kinase 90619 H CK-MB (CK-2) Troponin I 0.478 NT-Pro-B Natriuret Pep 7910 H 07/26/20 07/27/20 07/27/20 21:31 03:30 03:30 Creatine Kinase Cancelled CK-MB (CK-2) 296.00 H Troponin I 0.411 0.490 NT-Pro-B Natriuret Pep 6640 H 07/27/20 07/27/20 07/27/20 05:08 09:09 11:55 Creatine Kinase Cancelled 52326 H CK-MB (CK-2) Troponin I 0.522 NT-Pro-B Natriuret Pep 07/27/20 07/28/20 07/28/20 21:59 05:49 05:49 Creatine Kinase 59162 H 55477 H CK-MB (CK-2) Troponin I NT-Pro-B Natriuret Pep 1950 H 07/28/20 07/28/20 07/28/20 11:23 15:08 21:54 Creatine Kinase 6208 H 4875 H CK-MB (CK-2) Troponin I 0.308 NT-Pro-B Natriuret Pep 07/29/20 03:55 Creatine Kinase 4046 H CK-MB (CK-2) Troponin I NT-Pro-B Natriuret Pep Impressions: Extremity Arterial Study 07/27/20 00:00 IMPRESSION: No occlusion visualized. However, systolic velocities and waveforms indicate at least 75% stenosis at the distal aspect of the common femoral artery or proximal aspect of the superficial femoral artery. If not contraindicated, CTA of the right lower extremity could be performed for further evaluation. Chest X-Ray 07/29/20 00:00 IMPRESSION: Borderline heart size. No pulmonary edema. Cannot exclude airs pace disease in the left base, pneumonia versus atelectasis. Assessment and Plan - Diagnosis (1) Acute and chronic respiratory failure Qualifiers: Respiratory failure complication: hypoxia and hypercapnia Qualified Code(s): J96.21 - Acute and chronic respiratory failure with hypoxia; J96.22 - Acute and chronic respiratory failure with hypercapnia Is this a current diagnosis for this admission?: Yes Plan: * Successfully extubated yesterday. * CPAP nightly for suspected sleep apnea. * Decrease Solu-Medrol to every 12 hours dosing. * * 07/29/20-comfortably in bed communicating well on oxygen suplementation * * 07/30/2020-patient admitted with acute on chronic respiratory failure status post intubation and extubation. Plan is to decrease IV Solu-Medrol to 40 mg every 12 hours. To continue IV antibiotic therapy at this time. * * * 07/31/[id number]-[id number]-old female admitted to ICU for acute on chronic respiratory failure downgraded to medical floor yesterday. Doing well. Pulse ox 96% on 4 L. * * 08/01/2020-patient admitted with acute on chronic respiratory failure. Pulse ox is 97% on 3 L. Improving. Receiving IV Solu-Medrol, (2) Sepsis Qualifiers: Sepsis type: sepsis due to unspecified organism Sepsis acute organ dysfunction status: unspecified Qualified Code(s): A41.9 - Sepsis, unspecified organism Is this a current diagnosis for this admission?: Yes Plan: * Sepsis/septic shock, suspected to be secondary to pneumonia. * Shock physiology has resolved. * On empiric Rocephin/azithromycin/vancomycin. * * * 07/29-sputum culture is growing Corynebacterium and a blood culture is growing Staphylococcus simulans. Patient is afebrile. Presently on Rocephin, azithr omycin, vancomycin. And is to discontinue vancomycin from today. * * 07/30/2020-sputum culture is growing Corynebacterium, blood culture is growing Staphylococcus simulans. Afebrile. Blood pressures are stable. Latest x- rays negative for pneumonia. Plan is to continue the antibiotic therapy for at least 2 more days. * * 07/31/2020-patient admitted with sepsis/septic shock secondary to pneumonia. Blood cultures are negative. Afebrile. Blood pressure stable. Plan is to discontinue antibiotics from today. (3) Rhabdomyolysis Qualifiers: Rhabdomyolysis type: non-traumatic Qualified Code(s): M62.82 - Rhabdomyolysis Is this a current diagnosis for this admission?: Yes Plan: * IV fluids: LR at 100 mL/h. * Got a dose of furosemide 40 mg IV single dose this a.m. * Stop trending CK total. * * 07/29/2020-came in with rhabdomyolysis with CK of more than 19,000. Receiving Ringer lactate 100 cc/h. CK is 4046. To recheck the CK levels tomorrow. * * 07/30/2020-patient admitted with rhabdomyolysis improving. Latest CKs 4046. CK levels are pending. * * (4) Elevated troponin Is this a current diagnosis for this admission?: Yes Plan: * 2D Echo (07/27): Probably mild LVH; no definite wall motion abnormality; LVEF greater than 65%. Grade 1/4 diastolic dysfunction. LA moderately dilated. (5) COPD exacerbation Is this a current diagnosis for this admission?: Yes Plan: * Decrease Solu-Medrol. * Continue DuoNeb. * Continue budesonide. 07/30/2020-patient admitted COPD exacerbation. IV Solu-Medrol to 40 mg every 12 hours, to continue DuoNeb nebulizations, to continue budesonide. Pulse ox is 95% 4 L this morning. (6) Pneumonia Qualifiers: Pneumonia type: due to unspecified organism Laterality: left Lung location: lower lobe of lung Qualified Code(s): J18.9 - Pneumonia, unspecified organism Is this a current diagnosis for this admission?: Yes Plan: * Continue empiric Rocephin/azithromycin/vancomycin. * Stop vancomycin after 3 days in the absence of compelling indication for continued administration. * Stop azithromycin after 5-day course. 07/30/2020-chest x-ray done yesterday shows improvement in pneumonia. Plan is to continue IV Rocephin and Zithromax at this time. (7) Acute kidney injury Is this a current diagnosis for this admission?: Yes Plan: * Proving, likely reflecting complications of rhabdomyolysis and prolonged hypoxia. * Renal dosing medications. * Avoid nephrotoxic drugs. 07/29/2020-acute kidney injury is improving. Latest serum creatinine is 1.64. 07/30/2020-creatinine today is 1.16. Acute kidney injury resolved. 07/31/2020-serum creatinine today 0.86. Acute kidney injury is resolved. (8) CHF (congestive heart failure), NYHA class II Qualifiers: Congestive heart failure type: unspecified Qualified Code(s): I50.9 - Heart failure, unspecified Is this a current diagnosis for this admission?: Yes Plan: 07/29/2020-echocardiogram indicates EF more than 60%, grade 1/4 diastolic dysfunction. (9) Acute metabolic encephalopathy Is this a current diagnosis for this admission?: Yes Plan: 07/29/2020-patient admitted with acute metabolic encephalopathy multifactorial. Resolved. (10) Morbid obesity Is this a current diagnosis for this admission?: No Plan: 07/30/2020-patient's BMI is more than 54. Diet exercise weight loss lifestyle modifications discussed with the patient. (11) Obesity hypoventilation syndrome Is this a current diagnosis for this admission?: No Plan: 07/30/2020-patient BMI is more than 54. Patient need outpatient sleep study. Patient may need to be on CPAP at home. - Time Anticipated Discharge Disposition: Assisted Living with Home Health Services Anticipated Discharge Timeframe: within 48 hours
[2020-08-01] MEDS: DOCUSATE SODIUM 100 MG CAPSULE PO SCH ×2 (10:53→17:19)
[2020-08-01] MEDS: NICOTINE 7 MG/24 HR PATCH.TD24 TD SCH (10:58)
[2020-08-01] MEDS: PANTOPRAZOLE SODIUM 40 MG TABLET.DR PO SCH (16:14)
[2020-08-01] MEDS: PANTOPRAZOLE SODIUM 40 MG VIAL IV SCH (18:19)
[2020-08-01] MEDS: METHYLPREDNISOLONE INJ 40 MG/1 ML SDV IV SCH (18:21)
[2020-08-02] MEDS: IPRATROPIUM/ALBUTEROL 0.5-2.5 MG/3 ML AMPUL NEB SCH ×4 (01:32→20:07)
[2020-08-02] MEDS: PANTOPRAZOLE SODIUM 40 MG TABLET.DR PO SCH ×2 (05:22→17:25)
[2020-08-02] MEDS: BUDESONIDE NEB 0.25 MG/2 ML AMPUL NEB SCH ×2 (09:03→20:07)
[2020-08-02] MEDS: NICOTINE 7 MG/24 HR PATCH.TD24 TD SCH (10:54)
[2020-08-02] MEDS: METHYLPREDNISOLONE INJ 40 MG/1 ML SDV IV SCH (10:55)
[2020-08-02] MEDS: DOCUSATE SODIUM 100 MG CAPSULE PO SCH ×2 (10:55→17:26)
--- NOTE | 2020-08-02 11:08 | PDOC PROGRESS REPORT ---
Subjective Progress Note for:: 08/02/20 Subjective:: Audible congested breath sounds at the bedside. Patient was asking when she can go home however she needed minimum to moderate assistance getting to the bedside commode. She normally is not on oxygen at home but continues to need 3 L nasal cannula today. Reason For Visit: ACUTE HYPERCARBIC RESPIRATORY FAILURE, CHF, Physical Exam Vital Signs: Temp Pulse Resp BP Pulse Ox 97.5 F 95 15 151/59 H 90 L 08/02/20 08:00 08/02/20 09:04 08/02/20 09:04 08/02/20 08:00 08/02/20 09:04 Intake & Output 08/01/20 08/02/20 08/03/20 06:59 06:59 06:59 Intake Total 1802 1785 Output Total 1875 2450 Balance -73 -665 Weight 161.3 kg 160.2 kg General appearance: PRESENT: cooperative, mild distress, morbidly obese, well- developed Head exam: PRESENT: atraumatic, normocephalic Ear exam: PRESENT: normal external ear exam. ABSENT: bleeding, drainage Respiratory exam: PRESENT: decreased breath sounds - Difficult to auscultate due to body habitus, prolonged expiratory phas, rales - Possible rales at bases, symmetrical. ABSENT: rhonchi, tachypnea, wheezes Cardiovascular exam: PRESENT: RRR, +S1, +S2, other - Diminished heart sounds due to body habitus. ABSENT: bradycardia, diastolic murmur, irregular rhythm, systolic murmur, tachycardia GI/Abdominal exam: PRESENT: diminished bowel sounds, soft, other - Markedly pendulous abdomen. ABSENT: guarding, tenderness Rectal exam: PRESENT: deferred Gentrourinary exam: PRESENT: indwelling catheter Extremities exam: PRESENT: pedal edema, +1 edema - Bilateral lower extremities Musculoskeletal exam: ABSENT: ambulatory - See physical therapy notes Neurological exam: PRESENT: alert, awake, oriented to person, oriented to place, oriented to situation, CN II-XII grossly intact. ABSENT: altered Psychiatric exam: PRESENT: appropriate affect. ABSENT: agitated, anxious Focused psych exam: ABSENT: delusional, paranoid, restlessness Skin exam: PRESENT: dry, warm. ABSENT: rash Results Laboratory Results: 08/01/20 05:39 08/01/20 05:39 07/26/20 07/26/2007/26/20 18:10 18:10 18:10 Creatine Kinase 00546 H CK-MB (CK-2) Troponin I 0.478 NT-Pro-B Natriuret Pep 7910 H 07/26/20 07/27/20 07/27/20 21:31 03:30 03:30 Creatine Kinase Cancelled CK-MB (CK-2) 296.00 H Troponin I 0.411 0.490 NT-Pro-B Natriuret Pep 6640 H 07/27/20 07/27/20 07/27/20 05:08 09:09 11:55 Creatine Kinase Cancelled 92947 H CK-MB (CK-2) Troponin I 0.522 NT-Pro-B Natriuret Pep 07/27/20 07/28/20 07/28/20 21:59 05:49 05:49 Creatine Kinase 46922 H 45542 H CK-MB (CK-2) Troponin I NT-Pro-B Natriuret Pep 1950 H 07/28/20 07/28/20 07/28/20 11:23 15:08 21:54 Creatine Kinase 6208 H 4875 H CK-MB (CK-2) Troponin I 0.308 NT-Pro-B Natriuret Pep 07/29/20 03:55 Creatine Kinase 4046 H CK-MB (CK-2) Troponin I NT-Pro-B Natriuret Pep Impressions: Extremity Arterial Study 07/27/20 00:00 IMPRESSION: No occlusion visualized. However, systolic velocities and waveforms indicate at least 75% stenosis at the distal aspect of the common femoral artery or proximal aspect of the superficial femoral artery. If not contraindicated, CTA of the right lower extremity could be performed for further evaluation. Chest X-Ray 07/29/20 00:00 IMPRESSION: Borderline heart size. No pulmonary edema. Cannot exclude airspace disease in the left base, pneumonia versus atelectasis. Assessment and Plan - Diagnosis (1) Acute on chronic respiratory failure with hypoxia and hypercapnia Is this a current diagnosis for this admission?: Yes Plan: Several etiologies including left lower lobe pneumonia, exacerbation of COPD and morbid obesity hypoventilation. The PCO2 is improving slowly. Continue to work towards weaning from oxygen. She states that she is not on oxygen at home however based on her current status she may very well require home oxygen from this point forward. She also states that she has never been assessed for sleep apnea which is a significant possibility. (2) Sepsis Qualifiers: Sepsis type: sepsis due to unspecified organism Sepsis acute organ d ysfunction status: unspecified Qualified Code(s): A41.9 - Sepsis, unspecified organism Is this a current diagnosis for this admission?: Yes Plan: * Sepsis/septic shock, suspected to be secondary to pneumonia. * Shock physiology has resolved. * On empiric Rocephin/azithromycin/vancomycin. * * * 07/29-sputum culture is growing Corynebacterium and a blood culture is growing Staphylococcus simulans. Patient is afebrile. Presently on Rocephin, azithromycin, vancomycin. And is to discontinue vancomycin from today. * * 07/30/2020-sputum culture is growing Corynebacterium, blood culture is growing Staphylococcus simulans. Afebrile. Blood pressures are stable. Latest x- rays negative for pneumonia. Plan is to continue the antibiotic therapy for at least 2 more days. * * 07/31/2020-patient admitted with sepsis/septic shock secondary to pneumonia. Blood cultures are negative. Afebrile. Blood pressure stable. Plan is to discontinue antibiotics from today. * 08/02/2020-resolved (3) Rhabdomyolysis Qualifiers: Rhabdomyolysis type: non-traumatic Qualified Code(s): M62.82 - Rhabdomyolysis Is this a current diagnosis for this admission?: Yes Plan: * IV fluids: LR at 100 mL/h. * Got a dose of furosemide 40 mg IV single dose this a.m. * Stop trending CK total. * * 07/29/2020-came in with rhabdomyolysis with CK of more than 19,000. Receiving Ringer lactate 100 cc/h. CK is 4046. To recheck the CK levels tomorrow. * * 07/30/2020-patient admitted with rhabdomyolysis improving. Latest CKs 4046. CK levels are pending. * * 08/02/2020-we will recheck creatinine kinase level tomorrow. It should be down significantly. (4) Elevated troponin Is this a current diagnosis for this admission?: Yes Plan: * 2D Echo (07/27): Probably mild LVH; no definite wall motion abnormality; LVEF greater than 65%. Grade 1/4 diastolic dysfunction. LA moderately dilated. * 08/02/2020-troponin peaked at 0.5. Last check was down to 0.3. No longer trending troponins. (5) COPD exacerbation Is this a current diagnosis for this admission?: Yes Plan: * Decrease Solu-Medrol. * Continue DuoNeb. * Continue budesonide. 07/30/2020-patient admitted COPD exacerbation. IV Solu-Medrol to 40 mg every 12 hours, to continue DuoNeb nebulizations, to continue budesonide. Pulse ox is 95% 4 L this morning. 08/02/20200950-Olrs-Tnscsv is down to once daily. Continue nebulizers and budesonide. Try to taper oxygen to off however due to multiple confounding cofactors she may require oxygen permanently. (6) Pneumonia Qualifiers: Pneumonia type: due to unspecified organism Laterality: left Lung location: lower lobe of lung Qualified Code(s): J18.9 - Pneumonia, unspecified organism Is this a current diagnosis for this admission?: Yes Plan: * Continue empiric Rocephin/azithromycin/vancomycin. * Stop vancomycin after 3 days in the absence of compelling indication for continued administration. * Stop azithromycin after 5-day course. 07/30/2020-chest x-ray done yesterday shows improvement in pneumonia. Plan is to continue IV Rocephin and Zithromax at this time. 08/02/2020-multiple different antibiotic doses were listed. Orders for antibiotics entered included cefazolin, ceftriaxone, vancomycin and azithromycin. Per the old orders it appears that the antibiotics were discontinued on or about admission. White blood cell count has normalized regardless. Continue current respiratory treatments. (7) Acute kidney injury Is this a current diagnosis for this admission?: Yes Plan: * Proving, likely reflecting complications of rhabdomyolysis and prolonged hypoxia. * Renal dosing medications. * Avoid nephrotoxic drugs. 07/29/2020-acute kidney injury is improving. Latest serum creatinine is 1.64. 07/30/2020-creatinine today is 1.16. Acute kidney injury resolved. 07/31/2020-serum creatinine today 0.86. Acute kidney injury is resolved. 08/02/2020-serum creatinine is normalized. BUN is still slightly elevated at 45. We will continue to monitor renal function. The patient has had a negative fluid balance. She is currently not on diuretic therapy. She may need to consider increased fluid intake. (8) Acute on chronic diastolic (congestive) heart failure Is this a current diagnosis for this admission?: Yes Plan: 08/02/2020-normal ejection fraction with grade 1/4 diastolic failure. We will add low-dose furosemide and low-dose lisinopril and monitor closely. (9) Acute metabolic encephalopathy Is this a current diagnosis for this admission?: Yes Plan: 07/29/2020-patient admitted with acute metabolic encephalopathy multifactorial. Resolved. 08/02/2020-elevated PCO2 as well as sepsis would be the most likely factors. Acute metabolic encephalopathy appears to be resolved. (10) Morbid obesity with BMI of 50.0-59.9, adult Is this a current diagnosis for this admission?: Yes Plan: * Clinically, she is high risk for obstructive sleep apnea. She will need to be closely monitored after extubation. * 08/02/2020-BMI 55.3. Significantly increases risk for multiple pathologies including cardiac and pulmonary. As exercise is not realistic at this point she would need very aggressive dietary management. (11) Obesity hypoventilation syndrome Is this a current diagnosis for this admission?: Yes Plan: 07/30/2020-patient BMI is more than 54. Patient need outpatient sleep study. Patient may need to be on CPAP at home. 08/02/2020-the patient is at tremendous risk for obstructive sleep apnea in addition to the obesity hypoventilation syndrome. She likely has a chronically elevated PCO2. Encourage use of CPAP and sleep study evaluation. (12) Hyperkalemia Is this a current diagnosis for this admission?: Yes Plan: 08/02/2020-BUN and creatinine are improved. Potassium has slowly been increasing. It is currently 5.1. This is despite the creatinine returning to normal and the BUN improving to 45. Will recheck tomorrow. Without intervention it may very well be normal. (13) Peripheral arterial disease Is this a current diagnosis for this admission?: Yes Plan: 08/02/2020-duplex ultrasound showed probable 75% stenosis in the distal area of the right common femoral artery into the proximal superficial femoral artery. Additional studies to be considered after she recovers from this episode. Will start aspirin therapy. Transaminases are slightly elevated therefore will hold off on statin therapy at this time. She would benefit from the addition of statins as well as a more formal evaluation of lower extremity circulation. (14) Pulmonary hypertension Is this a current diagnosis for this admission?: Yes Plan: 08/02/2020-mild pulmonary hypertension identified by echo. No specific treatment at this time. Continue treatment for other comorbidities. - Time Time Spent with patient: 15-24 minutes Medications reviewed and adjusted accordingly: Yes Anticipated Discharge Disposition: [facility] Facility Anticipated Discharge Timeframe: Unknown
[2020-08-02] MEDS ORDERED: ASPIRIN 81 MG TABLET, ENT COATED PO SCH (22:00)
[2020-08-03] MEDS: IPRATROPIUM/ALBUTEROL 0.5-2.5 MG/3 ML AMPUL NEB SCH ×3 (02:31→14:09)
[2020-08-03] MEDS: PANTOPRAZOLE SODIUM 40 MG TABLET.DR PO SCH (05:53)
[2020-08-03] MEDS: BUDESONIDE NEB 0.25 MG/2 ML AMPUL NEB SCH (08:11)
[2020-08-03] MEDS ORDERED: LISINOPRIL 5 MG TABLET PO SCH (10:00)
[2020-08-03] MEDS ORDERED: LOSARTAN POTASSIUM 50 MG TABLET PO SCH (10:00)
[2020-08-03] MEDS ORDERED: FUROSEMIDE 20 MG TABLET PO SCH (10:00)
[2020-08-03] MEDS: METHYLPREDNISOLONE INJ 40 MG/1 ML SDV IV SCH (10:32)
[2020-08-03] MEDS: DOCUSATE SODIUM 100 MG CAPSULE PO SCH (10:33)
[2020-08-03] MEDS: NICOTINE 7 MG/24 HR PATCH.TD24 TD SCH (10:33)
[2020-08-03 11:56] VITALS: BP 111/79
--- NOTE | 2020-08-03 11:59 | PDOC TRANSFER SUMMARY ---
Impression - Admit/DC Date/PCP Admission Date/Primary Care Provider: 07/26/20 21:23 CAPRICE GOLDSTEIN Discharge Date: 08/03/20 - Discharge Diagnosis (1) Acute on chronic respiratory failure with hypoxia and hypercapnia Is this a current diagnosis for this admission?: Yes (2) Sepsis Is this a current diagnosis for this admission?: Yes (3) Rhabdomyolysis Is this a current diagnosis for this admission?: Yes (4) Elevated troponin Is this a current diagnosis for this admission?: Yes (5) COPD exacerbation Is this a current diagnosis for this admission?: Yes (6) Pneumonia Is this a current diagnosis for this admission?: Yes (7) Acute kidney injury Is this a current diagnosis for this admission?: Yes (8) Acute on chronic diastolic (congestive) heart failure Is this a current diagnosis for this admission?: Yes (9) Acute metabolic encephalopathy Is this a current diagnosis for this admission?: Yes (10) Morbid obesity with BMI of 50.0-59.9, adult Is this a current diagnosis for this admission?: Yes (11) Obesity hypoventilation syndrome Is this a current diagnosis for this admission?: Yes (12) Hyperkalemia Is this a current diagnosis for this admission?: Yes (13) Peripheral arterial disease Is this a current diagnosis for this admission?: Yes (14) Pulmonary hypertension Is this a current diagnosis for this admission?: Yes - Additional Information Resuscitation Status: Full Code Discharge Diet: Cardiac Discharge Activity: Activity As Tolerated, Balance Activity w/Rest, Weigh Daily Referrals: ENRIQUE JUAREZ FNP-C [Primary Care Provider] - Follow up as needed Prescriptions: Metoprolol Succinate [Toprol Xl 25 mg Tab.sr] 25 mg PO DAILY #1 tab.sr.24h Home Medications: Albuterol Sulfate [Ventolin 0.083% Neb 2.5 mg/3 mL Ampul] 1 vial NEB RTQ4 07/27/20 Albuterol Sulfate [Ventolin 0.083% Neb 2.5 mg/3 mL Ampul] 2.5 mg NEB RTQ2HP PRN vial.neb 08/03/20 Aspirin [Ecotrin 81 mg EC Tablet] 81 mg PO QHS tabec 08/03/20 Docusate Sodium [Colace 100 mg Capsule] 100 mg PO BID capsule 08/03/20 Furosemide [Lasix 20 mg Tablet] 20 mg PO DAILY tablet 08/03/20 Ipratropium/Albuterol Sulfate [Duoneb 3 ml Ampul] 3 ml NEB RTQ6 vial.neb 08/03/20 Losartan Potassium [Cozaar 50 mg Tablet] 50 mg PO DAILY tablet 08/03/20 Methylprednisolone Sod Succ/Pf [Solu-Medrol Inj/Pf 40 mg/1 ml Sdv] 40 mg IV DAILY vial 08/03/20 Metoprolol Succinate [Toprol Xl 25 mg Tab.sr] 25 mg PO DAILY #1 tab.sr.24h 08/03/20 Nicotine [Nicoderm 7 mg/24 Hr Transdermal Patch] 1 each TD DAILY patch.td24 08/03/20 Ondansetron HCl/Pf [Zofran Inj/Pf 4 mg/2 ml Sdv] 4 mg IV Q6HP PRN vial 08/03/20 Pantoprazole Sodium [Protonix [address] Tablet] 40 mg PO BID@0600,1700 tablet. 08/03/20 History of Present Illiness History of Present Illness: Per the critical care admission history and physical: LUCIA WINKLER is a 65-year-old female with history of COPD and "heart p roblems" reported by family members to have had difficulty breathing for several days. She was found semi responsive on her bath room by one of her relative after multiple failed attempt to reach her through phone. Unknown how long she has been in this state.EMS was activated. According to EMS crew the patient was lying on the floor and was initially alert and oriented but noted blue discoloration of lower extremities. She was hypoxic with o2 saturation < 65% Placed her on a non-rebreather and o2 saturation went up to 90%Patient was groaning and moving all 4 extremities symmetrically in response to painful stimuli. She was placed on BIPAP upon arrival to ED and urgently intubated. Hospital Course Hospital Course: The patient was initially admitted for sepsis with pneumonia and acute on chronic hypoxic hypercapnic respiratory failure. She does have a history of COPD, morbid obesity, diastolic heart failure and was also diagnosed with rhabdo myolysis. After 2 days in the ICU she was transferred to the fourth floor. Medical issues include: (1) Acute on chronic respiratory failure with hypoxia and hypercapnia Is this a current diagnosis for this admission?: Yes Plan: Several etiologies including left lower lobe pneumonia, exacerbation of COPD and morbid obesity hypoventilation. The PCO2 is improving slowly. Continue to work towards weaning from oxygen. She states that she is not on oxygen at home however based on her current status she may very well require home oxygen from this point forward. She also states that she has never been assessed for sleep apnea which is a significant possibility. (2) Sepsis Qualifiers: Sepsis type: sepsis due to unspecified organism Sepsis acute organ dysfunction status: unspecified Qualified Code(s): A41.9 - Sepsis, unspecified organism Is this a current diagnosis for this admission?: Yes Plan: * Sepsis/septic shock, suspected to be secondary to pneumonia. * Shock physiology has resolved. * On empiric Rocephin/azithromycin/vancomycin. * * * 07/29-sputum culture is growing Corynebacterium and a blood culture is growing Staphylococcus simulans. Patient is afebrile. Presently on Rocephin, azithromycin, vancomycin. And is to discontinue vancomycin from today. * * 07/30/2020-sputum culture is growing Corynebacterium, blood culture is growing Staphylococcus simulans. Afebrile. Blood pressures are stable. Latest x- rays negative for pneumonia. Plan is to continue the antibiotic therapy for at least 2 more days. * * 07/31/2020-patient admitted with sepsis/septic shock secondary to pneumonia. Blood cultures are negative. Afebrile. Blood pressure stable. Plan is to discontinue antibiotics from today. * 08/02/2020-resolved (3) Rhabdomyolysis Qualifiers: Rhabdomyolysis type: non-traumatic Qualified Code(s): M62.82 - Rhabdomyolysis Is this a current diagnosis for this admission?: Yes Plan: * IV fluids: LR at 100 mL/h. * Got a dose of furosemide 40 mg IV single dose this a.m. * Stop trending CK total. * * 07/29/2020-came in with rhabdomyolysis with CK of more than 19,000. Receiving Ringer lactate 100 cc/h. CK is 4046. To recheck the CK levels tomorrow. * * 07/30/2020-patient admitted with rhabdomyolysis improving. Latest CKs 4046. CK levels are pending. * * 08/02/2020-we will recheck creatinine kinase level tomorrow. It should be down significantly. (4) Elevated troponin Is this a current diagnosis for this admission?: Yes Plan: * 2D Echo (07/27): Probably mild LVH; no definite wall motion abnormality; LVEF greater than 65%. Grade 1/4 diastolic dysfunction. LA moderately dilated. * 08/02/2020-troponin peaked at 0.5. Last check was down to 0.3. No longer trending troponins. (5) COPD exacerbation Is this a current diagnosis for this admission?: Yes Plan: * Decrease Solu-Medrol. * Continue DuoNeb. * Continue budesonide. 07/30/2020-patient admitted COPD exacerbation. IV Solu-Medrol to 40 mg every 12 hours, to continue DuoNeb nebulizations, to continue budesonide. Pulse ox is 95% 4 L this morning. 08/02/20201199-Fwru-Pcfokr is down to once daily. Continue nebulizers and bude sonide. Try to taper oxygen to off however due to multiple confounding cofactors she may require oxygen permanently. 08/03/2020-continue nebulizers with goal of transitioning to inhaler regimen. Taper oxygen as tolerated. May need chronic oxygen therapy. (6) Pneumonia Qualifiers: Pneumonia type: due to unspecified organism Laterality: left Lung location: lower lobe of lung Qualified Code(s): J18.9 - Pneumonia, unspecified organism Is this a current diagnosis for this admission?: Yes Plan: * Continue empiric Rocephin/azithromycin/vancomycin. * Stop vancomycin after 3 days in the absence of compelling indication for continued administration. * Stop azithromycin after 5-day course. 07/30/2020-chest x-ray done yesterday shows improvement in pneumonia. Plan is to continue IV Rocephin and Zithromax at this time. 08/02/2020-multiple different antibiotic doses were listed. Orders for antibiotics entered included cefazolin, ceftriaxone, vancomycin and azithromycin. Per the old orders it appears that the antibiotics were discontinued on or about admission. White blood cell count has normalized regardless. Continue current respiratory treatments. (7) Acute kidney injury Is this a current diagnosis for this admission?: Yes Plan: * Proving, likely reflecting complications of rhabdomyolysis and prolonged hypoxia. * Renal dosing medications. * Avoid nephrotoxic drugs. 07/29/2020-acute kidney injury is improving. Latest serum creatinine is 1.64. 07/30/2020-creatinine today is 1.16. Acute kidney injury resolved. 07/31/2020-serum creatinine today 0.86. Acute kidney injury is resolved. 08/02/2020-serum creatinine is normalized. BUN is still slightly elevated at 45. We will continue to monitor renal function. The patient has had a negative fluid balance. She is currently not on diuretic therapy. She may need to consider increased fluid intake. 08/03/2020-continue current medications and monitor renal function (8) Acute on chronic diastolic (congestive) heart failure Is this a current diagnosis for this admission?: Yes Plan: 08/02/2020-normal ejection fraction with grade 1/4 diastolic failure. We will add low-dose furosemide and low-dose lisinopril and monitor closely. 08/03/2020-add low-dose beta-karlo (9) Acute metabolic encephalopathy Is this a current diagnosis for this admission?: Yes Plan: 07/29/2020-patient admitted with acute metabolic encephalopathy multifactorial. Resolved. 08/02/2020-elevated PCO2 as well as sepsis would be the most likely factors. Acute metabolic encephalopathy appears to be resolved. (10) Morbid obesity with BMI of 50.0-59.9, adult Is this a current diagnosis for this admission?: Yes Plan: * Clinically, she is high risk for obstructive sleep apnea. She will need to be closely monitored after extubation. * 08/02/2020-BMI 55.3. Significantly increases risk for multiple pathologies including cardiac and pulmonary. As exercise is not realistic at this point she would need very aggressive dietary management. (11) Obesity hypoventilation syndrome Is this a current diagnosis for this admission?: Yes Plan: 07/30/2020-patient BMI is more than 54. Patient need outpatient sleep study. Patient may need to be on CPAP at home. 08/02/2020-the patient is at tremendous risk for obstructive sleep apnea in addition to the obesity hypoventilation syndrome. She likely has a chronically elevated PCO2. Encourage use of CPAP and sleep study evaluation. (12) Hyperkalemia Is this a current diagnosis for this admission?: Yes Plan: 08/02/2020-BUN and creatinine are improved. Potassium has slowly been increasing. It is currently 5.1. This is despite the creatinine returning to normal and the BUN improving to 45. Will recheck tomorrow. Without intervention it may very well be normal. (13) Peripheral arterial disease Is this a current diagnosis for this admission?: Yes Plan: 08/02/2020-duplex ultrasound showed probable 75% stenosis in the distal area of the right common femoral artery into the proximal superficial femoral artery. Additional studies to be considered after she recovers from this episode. Will start aspirin therapy. Transaminases are slightly elevated therefore will hold off on statin therapy at this time. She would benefit from the addition of statins as well as a more formal evaluation of lower extremity circulation. (14) Pulmonary hypertension Is this a current diagnosis for this admission?: Yes Plan: 08/02/2020-mild pulmonary hypertension identified by echo. No specific treatment at this time. Continue treatment for other comorbidities. Physical Exam Vital Signs: Temp Pulse Resp BP Pulse Ox 98.7 F 80 19 111/79 94 08/03/20 11:43 08/03/20 11:43 08/03/20 11:43 08/03/20 11:43 08/03/20 11:43 Intake & Output 08/02/20 08/03/20 08/04/20 06:59 06:59 06:59 Intake Total 1785 2430 Output Total 2450 2200 Balance -665 230 Weight 160.2 kg 161.9 kg General appearance: PRESENT: cooperative, mild distress, morbidly obese, well- developed Head exam: PRESENT: atraumatic, normocephalic Ear exam: PRESENT: normal external ear exam. ABSENT: bleeding, drainage Mouth exam: PRESENT: moist, tongue midline Respiratory exam: PRESENT: prolonged expiratory phas, rhonchi - Congested breath sounds, symmetrical, unlabored. ABSENT: rales, tachypnea, wheezes Cardiovascular exam: PRESENT: RRR, +S1, +S2 GI/Abdominal exam: PRESENT: normal bowel sounds, soft, other - Pendulous abdome n. ABSENT: tenderness Rectal exam: PRESENT: deferred Gentrourinary exam: PRESENT: indwelling catheter Extremities exam: PRESENT: pedal edema, +1 edema Musculoskeletal exam: PRESENT: ambulatory - Extremely limited. Working with physical therapy. Neurological exam: PRESENT: alert, awake, oriented to person, oriented to place, oriented to time, oriented to situation, CN II-XII grossly intact. ABSENT: altered Psychiatric exam: PRESENT: anxious. ABSENT: agitated Focused psych exam: ABSENT: delusional, paranoid, restlessness Results Laboratory Results: WBC 10.4 10^3/uL (4.0-10.5) 08/01/20 05:39 RBC 4.40 10^6/uL (3.72-5.28) 08/01/20 05:39 Hgb 12.6 g/dL (12.0-15.5) 08/01/20 05:39 Hct 39.0 % (36.0-47.0) 08/01/20 05:39 MCV 89 fl (80-97) 08/01/20 05:39 MCH 28.7 pg (27.0-33.4) 08/01/20 05:39 MCHC 32.4 g/dL (32.0-36.0) 08/01/20 05:39 RDW 16.0 % (11.5-14.0) H 08/01/20 05:39 Plt Count 139 10^3/uL (150-450) L 08/01/20 05:39 Lymph % (Auto) Not Reportable 08/01/20 05:39 [place] % (Auto) Not Reportable 08/01/20 05:39 Eos % (Auto) Not Reportable 08/01/20 05:39 Baso % (Auto) Not Reportable 08/01/20 05:39 Absolute Neuts (auto) Not Reportable 08/01/20 05:39 Absolute Lymphs (auto) Not Reportable 08/01/20 05:39 Absolute Monos (auto) Not Reportable 08/01/20 05:39 Absolute Eos (auto) Not Reportable 08/01/20 05:39 Absolute Basos (auto) Not Reportable 08/01/20 05:39 Total Counted 100 08/01/20 05:39 Seg Neutrophils % Not Reportable 08/01/20 05:39 Seg Neuts % (Manual) 88 % (42-78) H 08/01/20 05:39 Band Neutrophils % 1 % (3-5) L 07/26/20 18:10 Lymphocytes % (Manual) 5 % (13-45) L 08/01/20 05:39 Atypical Lymphs % 1 % (0) 08/01/20 05:39 Monocytes % (Manual) 6 % (3-13) 08/01/20 05:39 Eosinophils % (Manual) 0 % (0-6) 08/01/20 05:39 Basophils % (Manual) 0 % (0-2) 08/01/20 05:39 Abs Neuts (Manual) 9.2 10^3/uL (1.7-8.2) H 08/01/20 05:39 Abs Lymphs (Manual) 0.6 10^3/uL (0.5-4.7) 08/01/20 05:39 Abs Monocytes (Manual) 0.6 10^3/uL (0.1-1.4) 08/01/20 05:39 Absolute Eos (Manual) 0.0 10^3/uL (0.0-0.6) 08/01/20 05:39 Abs Basophils (Manual) 0.0 10^3/uL (0.0-0.2) 08/01/20 05:39 Nucleated RBCs 1 /100 WBC (0) 07/26/20 21:31 Toxic Granulation SLIGHT 07/28/20 21:54 Toxic Vacuolation PRESENT 07/30/20 05:42 Large Platelets PRESENT 08/01/20 05:39 Platelet Comment DECREASED 08/01/20 05:39 Polychromasia SLIGHT 07/28/20 05:49 Poikilocytosis SLIGHT 07/28/20 05:49 Anisocytosis 1+ 08/01/20 05:39 Tear Drop Cells 1+ 07/28/20 05:49 Stomatocytes 1+ 07/26/20 18:10 RBC Morph Comment NORMO-CYTIC/CHROMIC 08/01/20 05:39 PT 15.5 SEC (11.4-15.4) H 07/26/20 18:10 INR 1.21 07/26/20 18:10 Carbonic Acid 1.52 mmol/L (1.05-1.35) H 07/28/20 04:35 HCO3/H2CO3 Ratio 18:1 07/28/20 04:35 ABG pH 7.36 (7.35-7.45) 07/28/20 04:35 ABG pCO2 50.6 mmHg (35-45) H 07/28/20 04:35 ABG pO2 67.4 mmHg (80-100) L 07/28/20 04:35 ABG HCO3 28.2 mmol/L (20-24) H 07/28/20 04:35 ABG Total CO2 29.8 mmol/L (21-25) H 07/28/20 04:35 ABG O2 Saturation 92.6 % (94-98) L 07/28/20 04:35 ABG Base Excess 1.9 mmol/L 07/28/20 04:35 VBG pH 7.12 (7.30-7.42) L* 07/26/20 18:10 VBG pCO2 93.7 mmHg (35-63) H* 07/26/20 18:10 VBG HCO3 30.1 mmol/L (20-32) 07/26/20 18:10 VBG Base Excess -3.0 mmol/L 07/26/20 18:10 FiO2 40% 07/28/20 04:35 Sodium 136.2 mmol/L (137-145) L 08/01/20 05:39 Potassium 5.1 mmol/L (3.6-5.0) H 08/01/20 05:39 Chloride 96 mmol/L (98-107) L 08/01/20 05:39 Carbon Dioxide 37 mmol/L (22-30) H 08/01/20 05:39 Anion Gap 3 (5-19) L 08/01/20 05:39 BUN 45 mg/dL (7-20) H 08/01/20 05:39 Creatinine 0.84 mg/dL (0.52-1.25) 08/01/20 05:39 Est GFR ( Amer) > 60 (>60) 08/01/20 05:39 Est GFR (Non-Af Amer) Cancelled 07/27/20 03:30 Est GFR (MDRD) Non-Af > 60 (>60) 08/01/20 05:39 Glucose 212 mg/dL (75-110) H 08/01/20 05:39 POC Glucose 102 mg/dL (70-110) 07/26/20 18:32 Hemoglobin A1c % 6.2 % (4.7-6.0) H 07/29/20 03:55 Lactic Acid 2.3 mmol/L (0.7-2.1) H 07/27/20 00:42 Calcium 8.4 mg/dL (8.4-10.2) 08/01/20 05:39 Phosphorus 4.5 mg/dL (2.5-4.5) 07/29/20 03:55 Magnesium 2.0 mg/dL (1.6-2.3) 08/01/20 05:39 Ferritin 35.60 ng/mL (11.1-264.0) 07/26/20 18:10 Total Bilirubin 0.6 mg/dL (0.2-1.3) 08/01/20 05:39 Direct Bilirubin 0.4 mg/dL (0.0-0.4) 08/01/20 05:39 Neonat Total Bilirubin Not Reportable 08/01/20 05:39 Neonat Direct Bilirubin Not Reportable 08/01/20 05:39 Neonat Indirect Bili Not Reportable 08/01/20 05:39 AST 73 U/L (14-36) H 08/01/20 05:39 ALT 94 U/L (<35) H 08/01/20 05:39 Alkaline Phosphatase 43 U/L (38-126) 08/01/20 05:39 Creatine Kinase 328 U/L (30-135) H 08/03/20 06:17 CK-MB (CK-2) 296.00 ng/mL (<4.55) H 07/26/20 21:31 Troponin I 0.308 ng/mL 07/28/20 11:23 NT-Pro-B Natriuret Pep 1950 pg/mL (<125) H 07/28/20 05:49 Total Protein 4.9 g/dL (6.3-8.2) L 08/01/20 05:39 Albumin 2.6 g/dL (3.5-5.0) L 08/01/20 05:39 Amylase 46 U/L (30-110) 07/26/20 21:31 Lipase 96.5 U/L (23-300) 07/26/20 21:31 EGFR Cancelled 07/27/20 03:30 Urine Color JOVANNY 07/26/20 18:10 Urine Appearance CLOUDY 07/26/20 18:10 Urine pH 5.0 (5.0-9.0) 07/26/20 18:10 Ur Specific [place] 1.020 07/26/20 18:10 Urine Protein 100 mg/dL (NEGATIVE) H 07/26/20 18:10 Urine Glucose (UA) NEGATIVE mg/dL (NEGATIVE) 07/26/20 18:10 Urine Ketones NEGATIVE mg/dL (NEGATIVE) 07/26/20 18:10 Urine Blood LARGE (NEGATIVE) H 07/26/20 18:10 Urine Nitrite (Reflex) NEGATIVE (NEGATIVE) 07/26/20 18:10 Urine Bilirubin NEGATIVE (NEGATIVE) 07/26/20 18:10 Urine Urobilinogen 4.0 mg/dL (<2.0) H 07/26/20 18:10 Leukocyte Esterase Rfl MODERATE (NEGATIVE) H 07/26/20 18:10 Urine RBC (Auto) 6 /HPF 07/26/20 18:10 U Hyaline Cast (Auto) 39 /LPF 07/26/20 18:10 Urine Bacteria (Auto) TRACE /HPF 07/26/20 18:10 Urine WBC (Reflex) 52 /HPF 07/26/20 18:10 Squamous Epi Cells Auto 11 /HPF 07/26/20 18:10 Amorphous Sediment Auto TRACE /HPF 07/26/20 18:10 Urine Mucus (Auto) MOD /LPF 07/26/20 18:10 Urine Ascorbic Acid NEGATIVE (NEGATIVE) 07/26/20 18:10 Gastric Occult Blood POSITIVE (NEGATIVE) 07/28/20 14:15 COVID-19 Source See comment 07/27/20 04:47 COVID-19 (PRAVEEN) Not Detected (Not Detect) 07/27/20 04:47 07/26/20 07/26/20 07/26/20 18:10 18:10 21:31 CK-MB (CK-2) 296.00 H Troponin I 0.478 0.411 NT-Pro-B Natriuret Pep 7910 H 6640 H 07/27/20 07/27/20 07/28/20 03:30 09:09 05:49 CK-MB (CK-2) Troponin I 0.490 0.522 NT-Pro-B Natriuret Pep 1950 H 07/28/20 11:23 CK-MB (CK-2) Troponin I 0.308 NT-Pro-B Natriuret Pep Impressions: Chest X-Ray 07/26/20 18:06 IMPRESSION: Findings may represent a developing multifocal pneumonia. Early CHF exacerbation is not excluded. Chest X-Ray 07/26/20 21:17 IMPRESSION: 1. Positioning of support lines and tubes as detailed above. A presumed endotracheal tube is noted. Consider retraction for more optimal placement. 2. Redemonstration of bibasilar airspace opacities. Findings are nonspecific and differential diagnosis includes infectious and inflammatory causes. Extremity Arterial Study 07/27/20 00:00 IMPRESSION: No occlusion visualized. However, systolic velocities and waveforms indicate at least 75% stenosis at the distal aspect of the common femoral artery or proximal aspect of the superficial femoral artery. If not contraindicated, CTA of the right lower extremity could be performed for further evaluation. Chest X-Ray 07/27/20 04:00 IMPRESSION: 1. The patient is rotated which limits evaluation. The endotracheal tube appears to be approximately 1.7 cm proximal to the zach. A repeat examination to better delineate the tip of the tube which appears to need to be repositioned. Chest X-Ray 07/29/20 00:00 IMPRESSION: Borderline heart size. No pulmonary edema. Cannot exclude airspace disease in the left base, pneumonia versus atelectasis. Plan Health Concerns: Multiple comorbidities in a morbidly obese patient who still wishes to smoke. Unrealistic expectations. Wishes to go home when she can hardly transfer to the chair. Needs aggressive physical and occupational therapy as well as ongoing medical care. Plan of Treatment: Transfer to longterm facility for aggressive rehab. Modify medications as her clinical condition indicates Eventual goal is home. She in fact plans to live with her daughter. Rehab is expected to be 30 days or less. Goals: Improved strength and mobility Taper to room air if possible. History of COPD may require ongoing oxygen therapy at discharge Establish with primary care provider. Would benefit from pulmonology and possibly cardiology We will also need to see vascular surgeon for peripheral arterial disease as an outpatient Time Spent: Greater than 30 Minutes Stroke Is this a Stroke Patient?: No Acute Heart Failure Is this a Heart Failure Patient?: Yes Documentation of LVEF assessment?: Yes LVEF: LVEF Greater Than 40% Anticoagulant Therapy: N/A Discharged on Evidence-Based Beta Blockers: Yes Discharged on ARNI?: No-Document Contraindications Reason(s) not discharged on ARNI: Other ARNI Reason - Other: Discharged on ARB Discharged on ARB?: Yes Discharged on ACEI?: N/A Discharged on ARB For LVEF <35%, discharged on Aldosterone Antagonist?: N/A (LVEF > or = 35%) Follow-up Appointment scheduled within 7 days?: No, document reason - Discharge to longterm facility
== END 2020-08-03 15:46 | DRG 871 ==
LOC: ER 17:45 → EH 21:23 → ICU 22:59 → 4S 07-29 13:06
PROVIDERS: ADMIT Internal Medicine Critical Care Medicine; ATTEND Hospitalist
PROC: 0BH17EZ Insertion of Endotracheal Airway into Trachea, Via Natural or Artificial Opening (ICD-10-PCS; principal; 2020-07-26)
PROC: 5A1945Z Respiratory Ventilation, 24-96 Consecutive Hours (ICD-10-PCS; 2020-07-26)
DX: A41.1 Sepsis due to other specified staphylococcus (principal); J96.21 Acute and chronic respiratory failure with hypoxia; I50.33 Acute on chronic diastolic (congestive) heart failure; G93.41 Metabolic encephalopathy; J15.8 Pneumonia due to other specified bacteria; J96.22 Acute and chronic respiratory failure with hypercapnia; R65.21 Severe sepsis with septic shock; M62.82 Rhabdomyolysis; E66.2 Morbid (severe) obesity with alveolar hypoventilation; J44.0 Chronic obstructive pulmonary disease with (acute) lower respiratory infection; J44.1 Chronic obstructive pulmonary disease with (acute) exacerbation; N17.9 Acute kidney failure, unspecified; Z68.43 Body mass index [BMI] 50.0-59.9, adult; F17.210 Nicotine dependence, cigarettes, uncomplicated; I25.2 Old myocardial infarction; R79.89 Other specified abnormal findings of blood chemistry; I73.89 Other specified peripheral vascular diseases; I27.20 Pulmonary hypertension, unspecified; E87.5 Hyperkalemia; Z20.828 Contact with and (suspected) exposure to other viral communicable diseases
CPT/HCPCS: 36415; 36600; 71045; 71046; 80048; 80053; 81001; 82150; 82271; 82550; 82552; 82553; 82728; 82803; 82962; 83036; 83605; 83690; 83735; 83880; 84100; 84484; 85025; 85610; 87040; 87070; 87077; 87086; 87150; 87186; 87205; 87635; 93005; 93010; 93306; 93926; 94002; 94003; 94660; 94667; 94799; 96361; 96365; 96368; 99291; C9113; C9803; J0330; J0456; J0690; J0696; J0743; J1652; J1940; J2704; J2920; J2930; J3370; J3490; J7060; J7120